=== PATIENT | male | born 1990 | race African-American/Black ===

== ENCOUNTER 2022-12-28 13:45 | Emergency (ER) | payer SELFPAY ==
--- OUTSIDE RECORDS SUMMARY | 2022-12-28 13:50 | XMS REPORT | Continuity of Care Document ---
:1990 Author Organization [facility] t Address [address] [facility] [address] [place] [address] Care Team Providers Name Role Phone UNKNOWN, REFFERING Primary Care Physician Unavailable ADIS MASCORRO Attending Clinician Unavailable ANNALEE RANDALL Attending Clinician Unavailable JEAN BOSTON M.D., Aroldo PENA Attending Clinician Unavailable JOSELYN HENRY M.D., JOSELYN Marrero M.D. Attending Clinician Unavailable ADIS MASCORRO Admitting Clinician Unavailable ANNALEE RANDALL Admitting Clinician Unavailable JEAN BOSTON M.D., JEAN Admitting Clinician Unavail able JOSELYN HENRY M.D., JOSELYN Marrero Admitting Clinician Unaseun lable Problems This patient has no known problems. Allergies, Adverse Reactions, Alerts This patient has no known allergies or adverse reactions. Social History Social Habit Start Date Stop Date Quantity Comments Source History of Current smoker MERCED العلي tobacco use [facility] r Tobacco use and 2017-10-27 2017-10-27 User of smokeless [facility] exposure [facility]:00:00 tobacco [facility] Alcohol intake 2017-10-27 2017-10-27 Current drinker [facility] (finding[facility] Sex Assigned At [birth year] [facility] kes [facility] Smoking Status Start Date Stop Date Source Ex-smoker 2017-10-27 00:00:00 2017-10-27 00:00:00 [facility] Medications This patient has no known medications. Procedures This patient has no known procedures. Encounters Start End Encounter Admission Attending Care Care Encounter Source Date/Time Date/Time Type Type Clinicians Facility Department ID 2017-10-22 2017-10-22 Emergency E ADIS MASCORRO [facility] MED [id number] 09:20:00 09:20:00 [facility] 2017-10-15 2017-10-15 [id number] 13:50:00 13:50:00 [facility] 2017-06-03 2017-06-07 [id number] [facility] 16:44:00 12:47[facility] 2017-04-05 Emergency E [facility] [id number] [address] 18:09:00 18:09:00 [facility] 2017-03-18 2017-03-18 [facility] [id number] [facility] 17:13:00 17:13:00 JEAN [facility] Results Test Description Test Time Test Comments Results Result Comments Source XR Forearm 2 Views 2017-12-22 Patient: JONNA, Left 18:12:48 DEONTRAY Date/Time12/22/2017 18:05 CDTReason for Examfoeriegn body in forearm;Other (please specify)ReportExam: XR Forearm 2 Views LeftLocation code: M50Ndrzgzy: Other (please specify);foreign body in forearmComparison: None availableFINDINGS:A P views of the left forearm were obtained before and after foreign body removal. There is linear radiopacity within the lateral soft tissues on AP imaging adjacent to the radius. There is removal of this foreign body. No remnant foreign body is visualized. There is no acute fracture or dislocation.IMPRESS ION:AP radiographs demonstrate in toto removal of radiopaque foreign body. Final Dictated by: MD Reyez Alan FDictated DT/TM: 12/22/2017 6:09 pmSigned by: MD Reyez Alan FSigned (Electronic Signature): 12/22/2017 6:12 pm XR Hand Complete 3+ 2017-11-17 Patient: BLACK, Views Right 15:24:46 DEONTRAY Date/Time11/17/2017 15:00 CDTReason for ExamForeign Body;Foreign bodyReportXR Hand Complete 3+ Views RightLOCATION: [id number]:Forei gn body;Foreign BodyCOMPARISON: None.DISCUSSION:Fro ntal, oblique, and lateral radiographs of the right hand were obtained.No radiopaque foreign body is seen.No acute fracture or dislocation is seen.No suspicious lytic or blastic osseous lesion is seen.The joint spaces are preserved.IMPRESSIO N:No acute osseous abnormalities. No radiopaque foreign body. Final Dictated by: MD Slade Alfred EDictated DT/TM: 11/17/2017 3:23 pmSigned by: MD Slade Alfred ESigndarnell (Electronic Signature): 11/17/2017 3:24 pm CBC with Differential 2017-10-22 10:35:00 Test Item Value Reference Range Interpretation Comme nts WBC (test code = WBC) 6.3 K/cumm 4.4-10.5 N RBC (test code = RBC) 4.10 M/cumm 4.10-5.70 N Hemoglobin (test code = HGB) 11.9 gm/dL 13.4-17.4 L Hematocrit (test code = HCT) 37.4 % 38.7-52.0 L MCV (test code = MCV) 91.1 fL 80-100 N MCH (test code = MCH) 29.0 pg 27.0-32.5 N MCHC (test code = MCHC) 31.8 g/dL 32.0-37.5 L RDW (test code = RDW) 13.5 % 11.5-14.5 N Platelet Count (test code = PLTCT) 370 K/cumm 140-440 N MPV (test code = MPV) 9.4 fL Diff Method (test code = DIFFM) Auto Neutrophil (test code = NEUT) 54.9 % 36-70 N Lymphocyte (test code = LYMPH) 35.8 % 12-44 N Monocyte (test code = MONO) 7.4 % 0-11 N Eosinophil (test code = EOS) 1.5 % 0-7 N Basophil (test code = BASO) 0.5 % 0-2 N Neutro Abs (test code = ANEUT) 3.4 K/cumm 1.6-7.4 N Lymph Abs (test code = ALYMPH) 2.3 K/cumm 0.5-4.6 N [place] Abs (test code = AMONO) 0.5 K/cumm 0.0-1.2 N Eos Abs (test code = AEOS) 0.09 K/cumm 0.00-0.74 N Baso Abs (test code = ABASO) 0.0 K/cumm 0.00-0.21 N Comprehensive Metabolic [id number] 10:23:00 Test Item Value Reference Range Interpretation Comments Sodium (test code = 140 mmol/L 135-145 N NA) Potassium (test 3.9 mmol/L 3.5-5.1 N code = K) Chloride (test code 102 mmol/L 98-105 N = CL) Carbon Dioxide 26 mmol/L 22-29 N (test code = CO2) Glucose (test code 135 mg/dL 70-115 H = GLU) Blood Urea Nitrogen 13 mg/dL 6-20 N (test code = BUN) Creatinine (test 1.1 mg/dL 0.7-1.2 N code = CREAT) Calcium (test code 8.6 mg/dL 8.3-10.5 N = CA) Prot Total (test 6.8 g/dL 6.4-8.3 N code = TP) Albumin (test code 4.0 g/dL 3.5-5.2 N = ALB) A/G Ratio (test 1.4 Ratio code = AGRATIO) Globulin (test code 2.8 2.9-3.1 L = GLOB) Bili Total (test 0.4 mg/dL 0.1-0.9 N code = TBIL) Alk Phos (test code 64 U/L 40-129 N = APHOS) AST (test code = 26 U/L 1-40 N AST) ALT (test code = 18 U/L 1-41 N ALT) BUN/Creatinine 11.8 Ratio (test code = BCRATIO) Anion Gap (test 12 mmol/L 7-16 N code = AGAP) Estimated GFR (test >60 eGFR (es timated code = GFR) mL/min/1.73m2 Glomerular Giorgio tration Rate) is an est imated value,calculate d from the patient's s isidra creatinine usin g the MDRD equation.I t is NOT the patient 's actual GFR. The eGFR provides a more clinicallyusefu l measure of kidn ey disease than se rum creatinine alone.This calculation kvng es sex and race into account, if the informationis provided. If th e race is not provided , and the patient isAfrican-Ameri can, multiply by 1.2 12. If sex is not prov ided, and thepatient is female, multipl y by 0.742. Results for patients <18 ye ars ofage have not been validated by th e MDRD study and shoul d be interpretedwith caution.eGFR Re sult Interpretation: eGFR > or = 60 is in t he Normal RangeeGF R < 60 may mean kidney diseaseeGFR < 1 5 may mean kidney failureRange s recommended by the National Kidney Foundation,http ://nkd ep.nih.gov [id number] 04:55:00 Test Item Value Reference Range Interpretation Comments Amphetamine (test POSITIVE Negative A For diagno stic code = AMPH) purposes only, positive result s should always b e assessedin conjunctionwith the patient's medic al history,clinica l examination and otherfindings.T o fulfill legal requirements, a more specific altern ate chemical method must be used inorder to obtain a Confirmed amarilis lytical result. GC/MS i s the preferred confi rmatory method. Barbiturates (test Negative Negative N code = MIRELA) Benzodiazepine (test Negative Negative N code = SHAHID) Cocaine (test code = POSITIVE Negative A COCA) Methadone (test code Negative Negative N = MTHD) Opiates (test code = Negative Negative N OPIA) PCP (test code = PCP) POSITIVE Negative A Propoxyphene (test Negative Negative N code = PROPOX) THC (test code = THC) POSITIVE Negative A Alcohol, Urine (test <0.01 g/dL 0.00-0.01 N code = ETOHU) Urinalysis [id number] 04:42:00 Test Item Value Reference Range Interpretation Comments Color (test code = COLOR) Yellow Yellow,Straw,Pl N yellow Clarity (test code = Clear Clear N CLAR) Specific [place] (test 1.017 1.001-1.035 N code = SPGR) pH (test code = PH) 6.5 5.0-9.0 N Ketone (test code = KET) Negative mg/dL Negative N Glucose (test code = Negative mg/dL Negative N GLUCUR) Protein (test code = Negative mg/dL Negative N PROT) Bilirubin (test code = Negative mg/dL Negative N BILI) Occult Blood (test code = Negative Negative N UDOB) Urobilinogen (test code = 0.2 mg/dL 0.2-1.0 N UROB) Nitrite (test code = NIT) Negative Negative N Leuk Esterase (test code Negative Negative N = LEUK) Micros Exam (test code = Not indicated MEXAM) Comprehensive Metabolic [id number] 14:57:00 Test Item Value Reference Range Interpretation Comments Sodium (test code = 139 mmol/L 135-145 N NA) Potassium (test 3.9 mmol/L 3.5-5.1 N code = K) Chloride (test code 101 mmol/L 98-105 N = CL) Carbon Dioxide 27 mmol/L 22-29 N (test code = CO2) Glucose (test code 113 mg/dL 70-115 N = GLU) Blood Urea Nitrogen 12 mg/dL 6-20 N (test code = BUN) Creatinine (test 0.8 mg/dL 0.7-1.2 N code = CREAT) Calcium (test code 8.7 mg/dL 8.3-10.5 N = CA) Prot Total (test 6.7 g/dL 6.4-8.3 N code = TP) Albumin (test code 3.8 g/dL 3.5-5.2 N = ALB) A/G Ratio (test 1.3 Ratio code = AGRATIO) Globulin (test code 2.9 2.9-3.1 N = GLOB) Bili Total (test 0.3 mg/dL 0.1-0.9 N code = TBIL) Alk Phos (test code 76 U/L 40-129 N = APHOS) AST (test code = 28 U/L 1-40 N AST) ALT (test code = 21 U/L 1-41 N ALT) BUN/Creatinine 15.0 Ratio (test code = BCRATIO) Anion Gap (test 11 mmol/L 7-16 N code = AGAP) Estimated GFR (test >60 eGFR (es timated code = GFR) mL/min/1.73m2 Glomerular Giorgio tration Rate) is an est imated value,calculate d from the patient's s isidra creatinine usin g the MDRD equation.I t is NOT the patient 's actual GFR. The eGFR provides a more clinicallyusefu l measure of kidn ey disease than se rum creatinine alone.This calculation kvng es sex and race into account, if the informationis provided. If th e race is not provided , and the patient isAfrican-Ameri can, multiply by 1.2 12. If sex is not prov ided, and thepatient is female, multipl y by 0.742. Results for patients <18 ye ars ofage have not been validated by e MDRD study and shoul d be interpretedwith caution.eGFR Re sult Interpretation: eGFR > or = 60 is in t he Normal RangeeGF R < 60 may mean kidney diseaseeGFR < 1 5 may mean kidney failureRange s recommended by the National Kidney Foundation,http ://nkd ep.nih.gov CBC with [id number] 14:41:00 Test Item Value Reference Range Interpretation Comments WBC (test code = WBC) 6.7 K/cumm 4.4-10.5 N RBC (test code = RBC) 4.16 M/cumm 4.10-5.70 N Hemoglobin (test code = HGB) 12.3 gm/dL 13.4-17.4 L Hematocrit (test code = HCT) 37.0 % 38.7-52.0 L MCV (test code = MCV) 88.9 fL 80-100 N MCH (test code = MCH) 29.5 pg 27.0-32.5 N MCHC (test code = MCHC) 33.2 g/dL 32.0-37.5 N RDW (test code = RDW) 13.0 % 11.5-14.5 N Platelet Count (test code = 386 K/cumm 140-440 N PLTCT) MPV (test code = MPV) 9.7 fL Diff Method (test code = DIFFM) Auto Neutrophil (test code = NEUT) 47.6 % 36-70 N Lymphocyte (test code = LYMPH) 42.5 % 12-44 N Monocyte (test code = MONO) 6.7 % 0-11 N Eosinophil (test code = EOS) 2.7 % 0-7 N Basophil (test code = BASO) 0.5 % 0-2 N Neutro Abs (test code = ANEUT) 3.2 K/cumm 1.6-7.4 N Lymph Abs (test code = ALYMPH) 2.8 K/cumm 0.5-4.6 N [place] Abs (test code = AMONO) 0.4 K/cumm 0.0-1.2 N Eos Abs (test code = AEOS) 0.18 K/cumm 0.00-0.74 N Baso Abs (test code = ABASO) 0.0 K/cumm 0.00-0.21 N RPR, [id number] 10:41:00 Test Item Value Reference Range Interpretation Comments RPR (test code = RPR) Non-Reactive Non-Reactive N Thyroid Stimulating Hormone (TSH)2017-10-07 08:03:00 Test Item Value Reference Range Interpretation Comments TSH (test code = TSH) 1.70 mIU/mL 0.270-4.200 N Lipid [id number] 07:56:00 Test Item Value Reference Range Interpretation Comments Cholesterol (test 151 mg/dL 0-200 N code = CHOL) Triglycerides (test 54 mg/dL 9-200 N code = TRIG) HDL (test code = 78 mg/dL 40-60 H HDL) Chol/HDL (test code 1.9 Ratio 0.0-5.0 N = CHOLPHDL) LDL, Calculated 62 0-130 N (NOTE)RISK O F HEART (test code = LDLC) DISEASEPu blished by Iranian Heart AssociationAnal yte Optimal Boderli ne Increased RiskC HOL <200 200-239 >240TRI G <150 150-199 >200HDL Male: >60 <40HDL Fema le: >60 <50LDL < 100 130-159 >160LDL NEAR OPTIMAL IS 100- 129 VLDL (test code = 11 mg/dL 5-40 N VLDL) LDL/HDL (test code = 1 LDLPHDL) [id number] 14:40:00 Test Item Value Reference Range Interpretation Comments Amphetamine (test code Negative Negative N For d iagnostic purposes = AMPH) only, positive results should always b e assessedin conjunctionwith the patient's medic al history,clinica l examination and otherfindings.T o fulfill legal requirements, a more specific altern ate chemical method must be used inorder to obtain a Confirmed amarilis lytical result. GC/MS i s the preferred confi rmatory method. Barbiturates (test Negative Negative N code = MIRELA) Benzodiazepine (test Negative Negative N code = SHAHID) Cocaine (test code = POSITIVE Negative A COCA) Methadone (test code = Negative Negative N MTHD) Opiates (test code = Negative Negative N OPIA) PCP (test code = PCP) Negative Negative N Propoxyphene (test Negative Negative N code = PROPOX) THC (test code = THC) POSITIVE Negative A Urinalysis [id number] 12:56:00 Test Item Value Reference Range Interpretation Comments Color (test code = COLOR) Yellow Yellow,Straw,Pl N yellow Clarity (test code = Clear Clear N CLAR) Specific [place]ert[place] (test 1.020 1.001-1.035 N code = SPGR) pH (test code = PH) 7.0 5.0-9.0 N Ketone (test code = KET) Negative mg/dL Negative N Glucose (test code = Negative mg/dL Negative N GLUCUR) Protein (test code = Negative mg/dL Negative N PROT) Bilirubin (test code = Negative mg/dL Negative N BILI) Occult Blood (test code = Negative Negative N UDOB) Urobilinogen (test code = 1.0 mg/dL 0.2-1.0 N UROB) Nitrite (test code = NIT) Negative Negative N Leuk Esterase (test code Negative Negative N = LEUK) Micros Exam (test code = Not indicated MEXAM) Comprehensive Metabolic [id number] 08:13:00 Test Item Value Reference Range Interpretation Comments Sodium (test code = 138 mmol/L 135-145 N NA) Potassium (test 4.1 mmol/L 3.5-5.1 N code = K) Chloride (test code 100 mmol/L 98-105 N = CL) Carbon Dioxide 27 mmol/L 22-29 N (test code = CO2) Glucose (test code 79 mg/dL 70-115 N = GLU) Blood Urea Nitrogen 10 mg/dL 6-20 N (test code = BUN) Creatinine (test 0.9 mg/dL 0.7-1.2 N code = CREAT) Calcium (test code 9.3 mg/dL 8.3-10.5 N = CA) Prot Total (test 7.9 g/dL 6.4-8.3 N code = TP) Albumin (test code 4.3 g/dL 3.5-5.2 N = ALB) A/G Ratio (test 1.2 Ratio code = AGRATIO) Globulin (test code 3.6 2.9-3.1 H = GLOB) Bili Total (test 0.5 mg/dL 0.1-0.9 N code = TBIL) Alk Phos (test code 61 U/L 40-129 N = APHOS) AST (test code = 26 U/L 1-40 N AST) ALT (test code = 18 U/L 1-41 N ALT) BUN/Creatinine 11.1 Ratio (test code = BCRATIO) Anion Gap (test 11 mmol/L 7-16 N code = AGAP) Estimated GFR (test >60 eGFR (es timated code = GFR) mL/min/1.73m2 Glomerular Giorgio tration Rate) is an est imated value,calculate d from the patient's s isidra creatinine usin g the MDRD equation.I t is NOT the patient 's actual GFR. The eGFR provides a more clinicallyusefu l measure of kidn ey disease than se rum creatinine alone.This calculation kvng es sex and race into account, if the informationis provided. If th e race is not provided , and the patient isAfrican-Ameri can, multiply by 1.2 12. If sex is not prov ided, and thepatient is female, multipl y by 0.742. Results for patients <18 ye ars ofage have not been validated by th e MDRD study and shoul d be interpretedwith caution.eGFR Re sult Interpretation: eGFR > or = 60 is in t he Normal RangeeGF R < 60 may mean kidney diseaseeGFR < 1 5 may mean kidney failureRange s recommended by the National Kidney Foundation,http ://nkd ep.nih.gov CBC with [id number] 07:59:00 Test Item Value Reference Range Interpretation Comments WBC (test code = WBC) 5.1 K/cumm 4.4-10.5 N RBC (test code = RBC) 4.38 M/cumm 4.10-5.70 N Hemoglobin (test code = HGB) 13.1 gm/dL 13.4-17.4 L Hematocrit (test code = HCT) 39.2 % 38.7-52.0 N MCV (test code = MCV) 89.5 fL 80-100 N MCH (test code = MCH) 29.8 pg 27.0-32.5 N MCHC (test code = MCHC) 33.3 g/dL 32.0-37.5 N RDW (test code = RDW) 13.0 % 11.5-14.5 N Platelet Count (test code = 356 K/cumm 140-440 N PLTCT) MPV (test code = MPV) 6.8 fL Diff Method (test code = DIFFM) Auto Neutrophil (test code = NEUT) 56.4 % 36-70 N Lymphocyte (test code = LYMPH) 30.6 % 12-44 N Monocyte (test code = MONO) 8.8 % 0-11 N Eosinophil (test code = EOS) 3.6 % 0-7 N Basophil (test code = BASO) 0.6 % 0-2 N Neutro Abs (test code = ANEUT) 2.9 K/cumm 1.6-7.4 N Lymph Abs (test code = ALYMPH) 1.6 K/cumm 0.5-4.6 N [place] Abs (test code = AMONO) 0.5 K/cumm 0.0-1.2 N Eos Abs (test code = AEOS) 0.19 K/cumm 0.00-0.74 N Baso Abs (test code = ABASO) 0.0 K/cumm 0.00-0.21 N RPR, [id number] 11:46:00 Test Item Value Reference Range Interpretation Comments RPR (test code = RPR) Non-Reactive Non-Reactive N Thyroid Stimulating Hormone (TSH)2017-06-18 08:48:00 Test Item Value Reference Range Interpretation Comments TSH (test code = TSH) 0.86 mIU/mL 0.270-4.200 N Lipid [id number] 08:40:00 Test Item Value Reference Range Interpretation Comments Cholesterol (test 157 mg/dL 0-200 N code = CHOL) Triglycerides (test 120 mg/dL 9-200 N code = TRIG) HDL (test code = 86 mg/dL 40-60 H HDL) Chol/HDL (test code 1.8 Ratio 0.0-5.0 N = CHOLPHDL) LDL, Calculated 47 0-130 N (NOTE)RISK O F HEART (test code = LDLC) DISEASEPu blished by Iranian Heart AssociationAnal yte Optimal Boderli ne Increased RiskC HOL <200 200-239 >240TRI G <150 150-199 >200HDL Male: >60 <40HDL Fema le: >60 <50LDL <100 130 -159 >160LDL NEAR OP TIMAL IS 100-129 VLDL (test code = 24 mg/dL 5-40 N VLDL) LDL/HDL (test code = 1 LDLPHDL) Alcohol/Ethanol, [id number] 16:31:00 Test Item Value Reference Range Interpretation Comments Alcohol, Ethyl <0.01 g/dL 0.00-0.01 N Intoxicated 0 .080 g/dL (test code = ETOH) or more Comprehensive Metabolic [id number] 16:31:00 Test Item Value Reference Range Interpretation Comments Sodium (test code = 138 mmol/L 135-145 N NA) Potassium (test 3.8 mmol/L 3.5-5.1 N code = K) Chloride (test code 102 mmol/L 98-105 N = CL) Carbon Dioxide 29 mmol/L 22-29 N (test code = CO2) Glucose (test code 107 mg/dL 70-115 N = GLU) Blood Urea Nitrogen 12 mg/dL 6-20 N (test code = BUN) Creatinine (test 0.9 mg/dL 0.7-1.2 N code = CREAT) Calcium (test code 9.2 mg/dL 8.3-10.5 N = CA) Prot Total (test 7.2 g/dL 6.4-8.3 N code = TP) Albumin (test code 4.1 g/dL 3.5-5.2 N = ALB) A/G Ratio (test 1.3 Ratio code = AGRATIO) Globulin (test code 3.1 2.9-3.1 N = GLOB) Bili Total (test 0.8 mg/dL 0.1-0.9 N code = TBIL) Alk Phos (test code 64 U/L 40-129 N = APHOS) AST (test code = 42 U/L 1-40 H AST) ALT (test code = 30 U/L 1-41 N ALT) BUN/Creatinine 13.3 Ratio (test code = BCRATIO) Anion Gap (test 7 mmol/L 7-16 N code = AGAP) Estimated GFR (test >60 eGFR (es timated code = GFR) mL/min/1.73m2 Glomerular Giorgio tration Rate) is an est imated value,calculate d from the patient's s isidra creatinine usin g the MDRD equation.I t is NOT the patient 's actual GFR. The eGFR provides a more clinicallyusefu l measure of kidn ey disease than se rum creatinine alone.This calculation kvng es sex and race into account, if the informationis provided. If th e race is not provided , and the patient isAfrican-Ameri can, multiply by 1.2 12. If sex is not prov ided, and thepatient is female, multipl y by 0.742. Results for patients <18 ye ars ofage have not been validated by th e MDRD study and shoul d be interpretedwith caution.eGFR Re sult Interpretation: eGFR > or = 60 is in t he Normal RangeeGF R < 60 may mean kidney diseaseeGFR < 1 5 may mean kidney failureRange s recommended by the National Kidney Foundation,http ://nkd ep.nih.gov CBC with [id number] 16:14:00 Test Item Value Reference Range Interpretation Comments WBC (test code = WBC) 5.0 K/cumm 4.4-10.5 N RBC (test code = RBC) 4.17 M/cumm 4.10-5.70 N Hemoglobin (test code = HGB) 13.7 gm/dL 13.4-17.4 N Hematocrit (test code = HCT) 37.2 % 38.7-52.0 L MCV (test code = MCV) 89.1 fL 80-100 N MCH (test code = MCH) 32.9 pg 27.0-32.5 H MCHC (test code = MCHC) 36.9 g/dL 32.0-37.5 N RDW (test code = RDW) 12.7 % 11.5-14.5 N Platelet Count (test code = 232 K/cumm 140-440 N PLTCT) MPV (test code = MPV) 9.1 fL Diff Method (test code = DIFFM) Auto Neutrophil (test code = NEUT) 59.7 % 36-70 N Lymphocyte (test code = LYMPH) 28.5 % 12-44 N Monocyte (test code = MONO) 10.2 % 0-11 N Eosinophil (test code = EOS) 1.4 % 0-7 N Basophil (test code = BASO) 0.2 % 0-2 N Neutro Abs (test code = ANEUT) 3.0 K/cumm 1.6-7.4 N Lymph Abs (test code = ALYMPH) 1.4 K/cumm 0.5-4.6 N [place] Abs (test code = AMONO) 0.5 K/cumm 0.0-1.2 N Eos Abs (test code = AEOS) 0.07 K/cumm 0.00-0.74 N Baso Abs (test code = ABASO) 0.0 K/cumm 0.00-0.21 N Comprehensive Metabolic [id number] 01:59:00 Test Item Value Reference Range Interpretation Comments Sodium (test code = 140 mmol/L 135-145 N NA) Potassium (test 3.7 mmol/L 3.5-5.1 N code = K) Chloride (test code 100 mmol/L 98-105 N = CL) Carbon Dioxide 29 mmol/L 22-29 N (test code = CO2) Glucose (test code 63 mg/dL 70-115 L = GLU) Blood Urea Nitrogen 13 mg/dL 6-20 N (test code = BUN) Creatinine (test 1.0 mg/dL 0.7-1.2 N code = CREAT) Calcium (test code 9.6 mg/dL 8.3-10.5 N = CA) Prot Total (test 7.3 g/dL 6.4-8.3 N code = TP) Albumin (test code 4.3 g/dL 3.5-5.2 N = ALB) A/G Ratio (test 1.4 Ratio code = AGRATIO) Globulin (test code 3.0 2.9-3.1 N = GLOB) Bili Total (test 0.4 mg/dL 0.1-0.9 N code = TBIL) Alk Phos (test code 76 U/L 40-129 N = APHOS) AST (test code = 19 U/L 1-40 N AST) ALT (test code = 13 U/L 1-41 N ALT) BUN/Creatinine 13.0 Ratio (test code = BCRATIO) Anion Gap (test 11 mmol/L 7-16 N code = AGAP) Estimated GFR (test >60 eGFR (es timated code = GFR) mL/min/1.73m2 Glomerular Giorgio tration Rate) is an est imated value,calculate d from the patient's s isidra creatinine usin g the MDRD equation.I t is NOT the patient 's actual GFR. The eGFR provides a more clinicallyusefu l measure of kidn ey disease than se rum creatinine alone.This calculation kvng es sex and race into account, if the informationis provided. If th e race is not provided , and the patient isAfrican-Ameri can, multiply by 1.2 12. If sex is not prov ided, and thepatient is female, multipl y by 0.742. Results for patients <18 ye ars ofage have not been validated by th e MDRD study and shoul d be interpretedwith caution.eGFR Re sult Interpretation: eGFR > or = 60 is in t he Normal RangeeGF R < 60 may mean kidney diseaseeGFR < 1 5 may mean kidney failureRange s recommended by the National Kidney Foundation,http ://nkd ep.nih.gov Alcohol/Ethanol, [id number] 01:59:00 Test Item Value Reference Range Interpretation Comments Alcohol, Ethyl <0.01 g/dL 0.00-0.01 N Intoxicated 0 .080 g/dL (test code = ETOH) or more [id number] 01:56:00 Test Item Value Reference Range Interpretation Comments Amphetamine (test Negative Negative N For diagno stic code = AMPH) purposes only, positive result s should always b e assessedin conjunctionwith the patient's medic al history,clinica l examination and otherfindings.T o fulfill legal requirements, a more specific altern ate chemical method must be used inorder to obtain a Confirmed amarilis lytical result. GC/MS i s the preferred confi rmatory method. Barbiturates (test Negative Negative N code = MIRELA) Benzodiazepine (test Negative Negative N code = SHAHID) Cocaine (test code = POSITIVE Negative A COCA) Methadone (test code Negative Negative N = MTHD) Opiates (test code = Negative Negative N OPIA) PCP (test code = PCP) Negative Negative N Propoxyphene (test Negative Negative N code = PROPOX) THC (test code = THC) Negative Negative N Alcohol, Urine (test <0.01 g/dL 0.00-0.01 N code = ETOHU) CBC with [id number] 01:55:00 Test Item Value Reference Range Interpretation Comments WBC (test code = WBC) 6.2 K/cumm 4.4-10.5 N RBC (test code = RBC) 4.55 M/cumm 4.10-5.70 N Hemoglobin (test code = HGB) 14.4 gm/dL 13.4-17.4 N Hematocrit (test code = HCT) 40.7 % 38.7-52.0 N MCV (test code = MCV) 89.4 fL 80-100 N MCH (test code = MCH) 31.7 pg 27.0-32.5 N MCHC (test code = MCHC) 35.4 g/dL 32.0-37.5 N RDW (test code = RDW) 12.3 % 11.5-14.5 N Platelet Count (test code = 257 K/cumm 140-440 N PLTCT) MPV (test code = MPV) 9.6 fL Diff Method (test code = DIFFM) Auto Neutrophil (test code = NEUT) 44.2 % 36-70 N Lymphocyte (test code = LYMPH) 44.2 % 12-44 H Monocyte (test code = MONO) 8.1 % 0-11 N Eosinophil (test code = EOS) 2.8 % 0-7 N Basophil (test code = BASO) 0.7 % 0-2 N Neutro Abs (test code = ANEUT) 2.8 K/cumm 1.6-7.4 N Lymph Abs (test code = ALYMPH) 2.8 K/cumm 0.5-4.6 N [place] Abs (test code = AMONO) 0.5 K/cumm 0.0-1.2 N Eos Abs (test code = AEOS) 0.18 K/cumm 0.00-0.74 N Baso Abs (test code = ABASO) 0.0 K/cumm 0.00-0.21 N RPR, [id number] 05:53:00 Test Item Value Reference Range Interpretation Comments RPR (test code = RPR) Non-Reactive Non-Reactive N Thyroid Stimulating Hormone (3rd Gen)2017-05-06 00:09:00 Test Item Value Reference Range Interpretation Comments TSH (test code = TSH) 2.26 mIU/mL 0.270-4.200 N Lipid [id number] 00:09:00 Test Item Value Reference Range Interpretation Comments Cholesterol (test 197 mg/dL 0-200 N code = CHOL) Triglycerides (test 146 mg/dL 9-200 N code = TRIG) HDL (test code = 83 mg/dL 40-60 H HDL) Chol/HDL (test code 2.4 Ratio 0.0-5.0 N = CHOLPHDL) LDL, Calculated 85 0-130 N (NOTE)RISK O F HEART (test code = LDLC) DISEASEPu blished by Iranian Heart AssociationAnal yte Optimal Boderli ne Increased RiskC HOL <200 200-239 >240TRI G <150 150-199 >200HDL Male: >60 <40HDL Fema le: >60 <50LDL <100 130 -159 >160LDL NEAR OP [facility] IS 100-129 VLDL (test code = 29 mg/dL 5-40 N VLDL) LDL/HDL (test code = 1 LDLPHDL) Comprehensive Metabolic [id number] 21:34:00 Test Item Value Reference Range Interpretation Comments Sodium (test code = 139 mmol/L 135-145 N NA) Potassium (test 3.7 mmol/L 3.5-5.1 N code = K) Chloride (test code 99 mmol/L 98-105 N = CL) Carbon Dioxide 30 mmol/L 22-29 H (test code = CO2) Glucose (test code 93 mg/dL 70-115 N = GLU) Blood Urea Nitrogen 13 mg/dL 6-20 N (test code = BUN) Creatinine (test 1.0 mg/dL 0.7-1.2 N code = CREAT) Calcium (test code 9.4 mg/dL 8.3-10.5 N = CA) Prot Total (test 7.3 g/dL 6.4-8.3 N code = TP) Albumin (test code 4.5 g/dL 3.5-5.2 N = ALB) A/G Ratio (test 1.6 Ratio code = AGRATIO) Globulin (test code 2.8 2.9-3.1 L = GLOB) Bili Total (test 0.2 mg/dL 0.1-0.9 N code = TBIL) Alk Phos (test code 64 U/L 40-129 N = APHOS) AST (test code = 18 U/L 1-40 N AST) ALT (test code = 13 U/L 1-41 N ALT) BUN/Creatinine 13.0 Ratio (test code = BCRATIO) Anion Gap (test 10 mmol/L 7-16 N code = AGAP) Estimated GFR (test >60 eGFR (es timated code = GFR) mL/min/1.73m2 Glomerular Giorgio tration Rate) is an est imated value,calculate d from the patient's s isidra creatinine usin g the MDRD equation.I t is NOT the patient 's actual GFR. The eGFR provides a more clinicallyusefu l measure of kidn ey disease than se rum creatinine alone.This calculation kvng es sex and race into account, if the informationis provided. If th e race is not provided , and the patient isAfrican-Ameri can, multiply by 1.2 12. If sex is not prov ided, and thepatient is female, multipl y by 0.742. Results for patients <18 ye ars ofage have not been validated by th e MDRD study and shoul d be interpretedwith caution.eGFR Re sult Interpretation: eGFR > or = 60 is in t he Normal RangeeGF R < 60 may mean kidney diseaseeGFR < 1 5 may mean kidney failureRange s recommended by the National Kidney Foundation,http ://nkd ep.nih.gov [id number] 21:17:00 Test Item Value Reference Range Interpretation Comments Amphetamine (test Negative Negative N For diagno stic code = AMPH) purposes only, positive result s should always b e assessedin conjunctionwith the patient's medic al history,clinica l examination and otherfindings.T o fulfill legal requirements, a more specific altern ate chemical method must be used inorder to obtain a Confirmed amarilis lytical result. GC/MS i s the preferred confi rmatory method. Barbiturates (test Negative Negative N code = MIRELA) Benzodiazepine (test Negative Negative N code = SHAHID) Cocaine (test code = Negative Negative N COCA) Methadone (test code Negative Negative N = MTHD) Opiates (test code = Negative Negative N OPIA) PCP (test code = PCP) Negative Negative N Propoxyphene (test Negative Negative N code = PROPOX) THC (test code = THC) Negative Negative N Alcohol, Urine (test <0.01 g/dL 0.00-0.01 N code = ETOHU) CBC with [id number] 21:15:00 Test Item Value Reference Range Interpretation Comments WBC (test code = WBC) 5.5 K/cumm 4.4-10.5 N RBC (test code = RBC) 4.75 M/cumm 4.10-5.70 N Hemoglobin (test code = HGB) 15.0 gm/dL 13.4-17.4 N Hematocrit (test code = HCT) 45.3 % 38.7-52.0 N MCV (test code = MCV) 95.4 fL 80-100 N MCH (test code = MCH) 31.5 pg 27.0-32.5 N MCHC (test code = MCHC) 33.0 g/dL 32.0-37.5 N RDW (test code = RDW) 12.4 % 11.5-14.5 N Platelet Count (test code = 321 K/cumm 140-440 N PLTCT) MPV (test code = MPV) 7.3 fL Diff Method (test code = DIFFM) Auto Neutrophil (test code = NEUT) 47.6 % 36-70 N Lymphocyte (test code = LYMPH) 39.6 % 12-44 N Monocyte (test code = MONO) 10.4 % 0-11 N Eosinophil (test code = EOS) 1.9 % 0-7 N Basophil (test code = BASO) 0.5 % 0-2 N Neutro Abs (test code = ANEUT) 2.6 K/cumm 1.6-7.4 N Lymph Abs (test code = ALYMPH) 2.2 K/cumm 0.5-4.6 N [place] Abs (test code = AMONO) 0.6 K/cumm 0.0-1.2 N Eos Abs (test code = AEOS) 0.10 K/cumm 0.00-0.74 N Baso Abs (test code = ABASO) 0.0 K/cumm 0.00-0.21 N Valproic Acid (Depakote),[id number] 09:44:00 Test Item Value Reference Range Interpretation Comments Valproic Acid (test code = VALP) 67.3 ug/mL 50.0-100.0 N Valproic Acid (Depakote),[id number] 21:18:00 Test Item Value Reference Range Interpretation Comments Valproic Acid (test code = VALP) 46.7 ug/mL 50.0-100.0 L RPR, [id number] 12:29:00 Test Item Value Reference Range Interpretation Comments RPR (test code = RPR) Non-Reactive Non-Reactive N Thyroid Stimulating Hormone (TSH)2017-03-19 09:08:00 Test Item Value Reference Range Interpretation Comments TSH (test code = TSH) 3.69 mIU/mL 0.270-4.200 N Lipid [id number] 09:02:00 Test Item Value Reference Range Interpretation Comments Cholesterol (test 166 mg/dL 0-200 N code = CHOL) Triglycerides (test 37 mg/dL 9-200 N code = TRIG) HDL (test code = 92 mg/dL 40-60 H HDL) Chol/HDL (test code 1.8 Ratio 0.0-5.0 N = CHOLPHDL) LDL, Calculated 67 0-130 N (NOTE)RISK O F HEART (test code = LDLC) DISEASEPu blished by Iranian Heart AssociationAnal yte Optimal Boderli ne Increased RiskC HOL <200 200-239 >240TRI G <150 150-199 >200HDL Male: >60 <40HDL Fem roista: >60 <50LDL < 100 130-159 >160LDL NEAR OPTIMAL IS 100- 129 VLDL (test code = 7 mg/dL 5-40 N VLDL) LDL/HDL (test code = 1 LDLPHDL) CBC with [id number] 13:48:00 Test Item Value Reference Range Interpretation Comments WBC (test code = WBC) 3.0 K/cumm 4.4-10.5 L WBC Corrected (test code 2.5 K/cumm 4.4-10.5 L = CWBC) RBC (test code = RBC) 3.88 M/cumm 4.10-5.70 L Hemoglobin (test code = 12.1 gm/dL 13.4-17.4 L HGB) Hematocrit (test code = 35.1 % 38.7-52.0 L HCT) MCV (test code = MCV) 90.5 fL 80-100 N MCH (test code = MCH) 31.3 pg 27.0-32.5 N MCHC (test code = MCHC) 34.6 g/dL 32.0-37.5 N RDW (test code = RDW) 12.6 % 11.5-14.5 N Platelet Count (test 192 K/cumm 140-440 N code = PLTCT) MPV (test code = MPV) 8.0 fL Diff Method (test code = Manual DIFFM) Neutrophil (test code = 48.0 % 36-70 N NEUT) Bands (test code = BAND) 2.0 % 0-6 N Lymphocyte (test code = 40.0 % 12-44 N LYMPH) Monocyte (test code = 5.0 % 0-11 N MONO) Eosinophil (test code = 4.0 % 0-7 N EOS) Basophil (test code = 1.0 % 0-2 N BASO) nRBC (test code = NRBC) 20 /100 WBC 0-0 H Neutro Abs (test code = 1.3 K/cumm 1.6-7.4 L ANEUT) Lymph Abs (test code = 1.0 K/cumm 0.5-4.6 N ALYMPH) [place] Abs (test code = 0.1 K/cumm 0.0-1.2 N AMONO) Eos Abs (test code = 0.10 K/cumm 0.00-0.74 N AEOS) Baso Abs (test code = 0.0 K/cumm 0.00-0.21 N ABASO) RBC Morphology (test Normal code = RBCMRPH) Platelet Est (test code Normal Platelet on = PLTEST) Smear [id number] 13:36:00 Test Item Value Reference Range Interpretation Comments Amphetamine (test code Negative Negative N For d iagnostic purposes = AMPH) only, positive results should always b e assessedin conjunctionwith the patient's medic al history,clinica l examination and otherfindings.T o fulfill legal requirements, a more specific altern ate chemical method must be used inorder to obtain a Confirmed amarilis lytical result. GC/MS i s the preferred confi rmatory method. Barbiturates (test Negative Negative N code = MIRELA) Benzodiazepine (test Negative Negative N code = SHAHID) Cocaine (test code = Negative Negative N COCA) Methadone (test code = Negative Negative N MTHD) Opiates (test code = Negative Negative N OPIA) PCP (test code = PCP) Negative Negative N Propoxyphene (test Negative Negative N code = PROPOX) THC (test code = THC) Negative Negative N Comprehensive Metabolic [id number] 13:00:00 Test Item Value Reference Range Interpretation Comments Sodium (test code = 139 mmol/L 135-145 N NA) Potassium (test 3.8 mmol/L 3.5-5.1 N code = K) Chloride (test code 101 mmol/L 98-105 N = CL) Carbon Dioxide 30 mmol/L 22-29 H (test code = CO2) Glucose (test code 76 mg/dL 70-115 N = GLU) Blood Urea Nitrogen 10 mg/dL 6-20 N (test code = BUN) Creatinine (test 1.0 mg/dL 0.7-1.2 N code = CREAT) Calcium (test code 8.9 mg/dL 8.3-10.5 N = CA) Prot Total (test 7.2 g/dL 6.4-8.3 N code = TP) Albumin (test code 4.3 g/dL 3.5-5.2 N = ALB) A/G Ratio (test 1.5 Ratio code = AGRATIO) Globulin (test code 2.9 2.9-3.1 N = GLOB) Bili Total (test 0.3 mg/dL 0.1-0.9 N code = TBIL) Alk Phos (test code 55 U/L 40-129 N = APHOS) AST (test code = 28 U/L 1-40 N AST) ALT (test code = 59 U/L 1-41 H ALT) BUN/Creatinine 10.0 Ratio (test code = BCRATIO) Anion Gap (test 8 mmol/L 7-16 N code = AGAP) Estimated GFR (test >60 eGFR (es timated code = GFR) mL/min/1.73m2 Glomerular Giorgio tration Rate) is an est imated value,calculate d from the patient's s isirda creatinine usin g the MDRD equation.I t is NOT the patient 's actual GFR. The eGFR provides a more clinicallyusefu l measure of kidn ey disease than se rum creatinine alone.This calculation kvng es sex and race into account, if the informationis provided. If th e race is not provided , and the patient isAfrican-Ameri can, multiply by 1.2 12. If sex is not prov ided, and thepatient is female, multipl y by 0.742. Results for patients <18 ye ars ofage have not been validated by th e MDRD study and shoul d be interpretedwith caution.eGFR Re sult Interpretation: eGFR > or = 60 is in t he Normal RangeeGF R < 60 may mean kidney diseaseeGFR < 1 5 may mean kidney failureRange s recommended by the National Kidney Foundation,http ://nkd ep.nih.gov Urinalysis [id number] 12:44:00 Test Item Value Reference Range Interpretation Comments Color (test code = COLOR) Yellow Yellow,Straw,Pl N yellow Clarity (test code = Clear Clear N CLAR) Specific Hubert[place] (test 1.010 1.001-1.035 N code = SPGR) pH (test code = PH) 7.0 5.0-9.0 N Ketone (test code = KET) Negative mg/dL Negative N Glucose (test code = Negative mg/dL Negative N GLUCUR) Protein (test code = Negative mg/dL Negative N PROT) Bilirubin (test code = Negative mg/dL Negative N BILI) Occult Blood (test code = Negative Negative N UDOB) Urobilinogen (test code = 0.2 mg/dL 0.2-1.0 N UROB) Nitrite (test code = NIT) Negative Negative N Leuk Esterase (test code Negative Negative N = LEUK) Micros Exam (test code = Not indicated MEXAM) Notes Date/Time Note Provider Source 2017-10-19 08:54:39-00:00 [facility] Discharge Summary PATIENT NAME: RADHA ASH PHYSICIAN: Kalyan mijares MD Admitted: MR NUMBER: [id number] DISCHARGED: 10/08/2017 01: 11:00 DATE OF ADMISSION: 10/06/2017 The patient was admitted 10/06/2017 and discharg ed against medical advice on 10/08/2017. ATTENDING PHYSICIAN: Jean Boston MD REASON FOR ADMISSION: Radha Ash is a 27-year-old black male with a past psychiatric history of schizoaffective disorder, bipolar type, antisoci al personality disorder, Cocaine use, who presents to the [facility] c omplaining of a "psych problem" with command auditory hallucinations te lling him to hurt himself and others in the context of cocaine and marijuana u se. PRIMARY DIAGNOSIS Drug-induced psychosis. SECONDARY DIAGNOSES: 1. Drug induced mood disorder. 2. Stimulant use disorder, severe. 3. Schizoaffective disorder, bipolar type. PRINCIPAL PROCEDURES: Psychopharmacotherapy. SPECIAL PROCEDURES: None. HOSPITAL COURSE: Mr. Radha Ash is a 27-year-old black male t hat was admitted to Dr. Boston's team from 10/06/2017 to 10/08/2017. The patient was on unit restrictions along with elopement and standard P ICU precautions. The patient was ordered his discharge medications from prev, which included Haldol, decanoate, and Prozac; however, he decli deepika these medications. He has also been here many times in the past and hi s course is similar. He refused to talk or cooperative. On the first day and refused all medications. On the second day, he was lucid ple asant with no SI, HI, or AVH. He was able to clearly tell me that his iss ues other drugs that he is chronically taking. He understands what will hap pen if he does not get help and refuses rehabilitation. He understands that continuing of illicit drug use could lead to possible , but inform me that he will stay away from them at this time, he wishes to leave against me dical advice. Again on the day of discharge, he denied any SI, HI, AVH, and felt that he was okay. He had been sleeping well. His plan includes callin g his family upon discharge from [facility] to pick him up. He states he kno ws the [facility] number to set up an appointment if he needs it. MENTAL STATUS EXAMINATION: General: Well groomed, well-nourished, black mal e with good eye contact, calm attitude, no psychomotor retardation or act ivation. No abnormal [facility] Discharge Summary PATIENT NAME: RADHA ASH PHYSICIAN: Kalyan mijares MD Admitted: MR NUMBER: [id number] DISCHARGED: 10/08/2017 01: 11:00 DATE OF ADMISSION: 10/06/2017 The patient was admitted 10/06/2017 and discharg ed against medical advice on 10/08/2017. ATTENDING PHYSICIAN: Jean Boston MD REASON FOR ADMISSION: Radha Ash is a 27-year-old black male with a past psychiatric history of schizoaffective disorder, bipolar type, antisoci al personality disorder, Cocaine use, who presents to the [facility] ED c omplaining of a "psych problem" with command auditory hallucinations te lling him to hurt himself and others in the context of cocaine and marijuana u se. PRIMARY DIAGNOSIS Drug-induced psychosis. SECONDARY DIAGNOSES: 1. Drug induced mood disorder. 2. Stimulant use disorder, severe. 3. Schizoaffective disorder, bipolar type. PRINCIPAL PROCEDURES: Psychopharmacotherapy. SPECIAL PROCEDURES: None. HOSPITAL COURSE: Mr. Radha Ash is a 27-year-old black male t hat was admitted to Dr. Boston's team from 10/06/2017 to 10/08/2017. The patient was on unit restrictions along with elopement and standard P ICU precautions. The patient was ordered his discharge medications from previ day, which included Haldol, decanoate, and Prozac; however, he decli deepika these medications. He has also been here many times in the past and hi s course is similar. He refused to talk or cooperative. On the first day and refused all medications. On the second day, he was lucid ple asant with no SI, HI, or AVH. He was able to clearly tell me that his iss ues other drugs that he is chronically taking. He understands what will hap pen if he does not get help and refuses rehabilitation. He understands that continuing of illicit drug use could lead to possible , but inform me that he will stay away from them at this time, he wishes to leave against me dical advice. Again on the day of discharge, he denied any SI, HI, AVH, and felt that he was okay. He had been sleeping well. His plan includes callin g his family upon discharge from [facility] to pick him up. He states he kno ws the [facility] number to set up an appointment if he needs it. MENTAL STATUS EXAMINATION: General: Well groomed, well-nourished, black mal e with good eye contact, calm attitude, no psychomotor retardation or act ivation. No abnormal [facility] Discharge Summary PATIENT NAME: RADHA ASH PHYSICIAN: Kalyan mijares MD Admitted: MR NUMBER: [id number] DISCHARGED: 10/08/2017 01:1 1:00 DATE OF ADMISSION: 10/06/2017 The patient was admitted 10/06/2017 and discharg ed against medical advice on 10/08/2017. ATTENDING PHYSICIAN: Jean Boston MD REASON FOR ADMISSION: Radha Ash is a 27-year-old black male with a past psychiatric history of schizoaffective disorder, bipolar type, antisoci al personality disorder, Cocaine use, who presents to the [facility] ED c omplaining of a "psych problem" with command auditory hallucinations te lling him to hurt himself and others in the context of cocaine and marijuana u se. PRIMARY DIAGNOSIS Drug-induced psychosis. SECONDARY DIAGNOSES: 1. Drug induced mood disorder. 2. Stimulant use disorder, severe. 3. Schizoaffective disorder, bipolar type. PRINCIPAL PROCEDURES: Psychopharmacotherapy. SPECIAL PROCEDURES: None. HOSPITAL COURSE: Mr. Radha Ash is a 27-year-old black male t hat was admitted to Dr. Boston's team from 10/06/2017 to 10/08/2017. The patient was on unit restrictions along with elopement and standard P ICU precautions. The patient was ordered his discharge medications from day, which included Haldol, decanoate, and Prozac; however, he decli deepika these medications. He has also been here many times in the past and hi s course is similar. He refused to talk or cooperative. On the first day and refused all medications. On the second day, he was lucid ple asant with no SI, HI, or AVH. He was able to clearly tell me that his iss ues other drugs that he is chronically taking. He understands what will hap pen if he does not get help and refuses rehabilitation. He understands that continuing of illicit drug use could lead to possible , but inform me that he will stay away from them at this time, he wishes to leave against me dical advice. Again on the day of discharge, he denied any SI, HI, AVH, and felt that he was okay. He had been sleeping well. His plan includes callin g his family upon discharge from [facility] to pick him up. He states he kno ws the [facility] clinic number to set up an appointment if he needs it. MENTAL STATUS EXAMINATION: General: Well groomed, well-nourished, black mal e with good eye contact, calm attitude, no psychomotor retardation or act ivation. No abnormal Patient Name: RADHA ASH Account Number: [id number] movements. Speech: Regular rate, rhythm, and vol ume with good articulation. Mood and affect: Mood was "okay." Affect is eut hymic and is congruent with mood. Affect is even with normal range and inten sity. Perception: Denies any auditory or visual hallucinations. Denies an y illusions. Thought Process: Linear and logical and goal directed. T hought content: The patient denies any suicidal ideation, homicidal ideation, paranoia, ideas of reference and delusions. Insight and judgment: I nsight is full, the patient is aware of why he is here and has a full unders tanding of his drug use. Judgment is fair to poor. He does not believe he needs any rehabilitation with his drug use. He states that he will do delio t on his own. He was uncooperative with the treatment plan and refuse d medications. Cognition: Alertness and orientation. Alert and oriented to person, place, time and circumstance. He is able to state his full name, location, date and villavicencio at the hospital. Memory: Grossly intact. Registrati on short or long-term memory. Intellectual Functioning: Average. ATTENTION: Intact. He is able to stay focused through the i nterview. Gait normal. LABS: No new labs. DRUG REACTIONS INTERACTIONS: None. DISCHARGE MEDICATIONS: None. Discharge instructions were provided to the [facility]. Physical activity as tolerated. No driving restrictions. No diet rest rictions. FOLLOWUP: The patient states that he will call [facility] if he wants an appointment or needs any kind of rehabilitation. DISPOSITION: Mr. Radha Ash is currently stable. We are d ischarging the patient AMA to [facility] where he states he will call family t o pick him up. The patient's prognosis is poor as he has a history of repeate d substance abuse and inpatient hospitalizations 7 in the last year. H owever, if he is able to stay away from drugs. He should do okay. He has also been encouraged to abstain from illicit drug use. The importance of following through with this plan. Has been reviewed with the patient, with t he understanding that compliance will be crucial to the recovery. He h as been given the [facility] crisis hotline No. [phone] and information a [facility] if you would like to obtain therapy. Patient Name: RADHA ASH Account Number: [id number] movements. Speech: Regular rate, rhythm, and vol ume with good articulation. Mood and affect: Mood was "okay." Affect is eut hymic and is congruent with mood. Affect is even with normal range and inten sity. Perception: Denies any auditory or visual hallucinations. Denies an y illusions. Thought Process: Linear and logical and goal directed. T hought content: The patient denies any suicidal ideation, homicidal ideation, paranoia, ideas of reference and delusions. Insight and judgment: I nsight is full, the patient is aware of why he is here and has a full unders tanding of his drug use. Judgment is fair to poor. He does not believe he needs any rehabilitation with his drug use. He states that he will do delio t on his own. He was uncooperative with the treatment plan and refuse d medications. Cognition: Alertness and orientation. Alert and oriented to person, place, time and circumstance. He is able to state his full name, location, date and villavicencio at the hospital. Memory: Grossly intact. Registrati on short or long-term memory. Intellectual Functioning: Average. ATTENTION: Intact. He is able to stay focused through the i nterview. Gait normal. LABS: No new labs. DRUG REACTIONS INTERACTIONS: None. DISCHARGE MEDICATIONS: None. Discharge instructions were provided to the [facility]. Physical activity as tolerated. No driving restrictions. No diet rest rictions. FOLLOWUP: The patient states that he will call [facility] if he wants an appointment or needs any kind of rehabilitation. DISPOSITION: Mr. Radha Ash is currently stable. We are d ischarging the patient AMA to [facility] where he states he will call family t o pick him up. The patient's prognosis is poor as he has a history of repeate d substance abuse and inpatient hospitalizations 7 in the last year. H owever, if he is able to stay away from drugs. He should do okay. He has also been encouraged to abstain from illicit drug use. The importance of following through with this plan. Has been reviewed with the patient, with t he understanding that compliance will be crucial to the recovery. He h as been given the [facility] crisis hotline No. [phone] and information a [facility] if you would like to obtain therapy. Patient Name: RADHA ASH Account Number: [id number] movements. Speech: Regular rate, rhythm, and vol ume with good articulation. Mood and affect: Mood was "okay." Affect is eut hymic and is congruent with mood. Affect is even with normal range and inten sity. Perception: Denies any auditory or visual hallucinations. Denies an y illusions. Thought Process: Linear and logical and goal directed. T hought content: The patient denies any suicidal ideation, homicidal ideation, paranoia, ideas of reference and delusions. Insight and judgment: I nsight is full, the patient is aware of why he is here and has a full unders tanding of his drug use. Judgment is fair to poor. He does not believe he needs any rehabilitation with his drug use. He states that he will do delio t on his own. He was uncooperative with the treatment plan and refuse d medications. Cognition: Alertness and orientation. Alert and oriented to person, place, time and circumstance. He is able to state his full name, location, date and villavicencio at the hospital. Memory: Grossly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
--- NOTE | 2022-12-28 14:07 | EDPHYS ---
Physician Documentation [facility] Name: Teetee Samuels Age: 32 yrs Sex: Male : 1990 Arrival Date: 12/28/2022 Time: 13:45 Bed Waiting Private MD: ED Physician Marco Ryder HPI: 12/28 14:09 This 32 yrs old Black Male presents to ER via Ambulatory with complaints of Psych ms3 Problem. 14:09 32-year-old male with past medical history of ADD/ADHD, bipolar, depression, ms3 schizophrenia presents complaining of sari. Patient states he was discharged from senior living on December 21. Patient was on Effexor 150 mg daily, Abilify 30 mg daily, Cogentin 10 mg. Patient states he has not taken his medications since leaving senior living. Patient states he has medications at home. Patient would like to reach [facility] to have his medications changed. Patient states he does not have suicidal ideations, homicidal ideations, or hallucinations at this time. Historical: - Allergies: 14:03 Aspirin; nj1 - PMHx: 14:03 ADD/ADHD; Bipolar disorder; Depression; Schizophrenia; nj1 - Immunization history:: Adult Immunizations unknown. - Social history:: Smoking status: Patient reports the use of cigarette tobacco products, smokes one-half pack cigarettes per day. ROS: 14:09 Constitutional: Negative for fever, and chills. Neck: Negative for injury, pain, and ms3 swelling, Cardiovascular: Negative for chest pain, and palpitations. Respiratory: Negative for shortness of breath, cough, wheezing, and pleuritic chest pain, Abdomen/GI: Negative for abdominal pain, nausea, vomiting, diarrhea, and constipation, MS/Extremity: Negative for injury and deformity, Skin: Negative for injury, rash, and discoloration. 14:09 Psych: Positive for anxiety, Negative for depression, auditory hallucinations, visual hallucinations, homicidal ideation, suicide gesture, suicidal ideation. 14:09 All other systems are negative. Exam: 14:09 Constitutional: This is a well developed, well nourished patient who is awake, alert, ms3 and in no acute distress. Head/Face: Normocephalic, atraumatic. Neck: Trachea midline, no cervical lymphadenopathy. Supple, full range of motion without nuchal rigidity, or vertebral point tenderness. No Meningismus. Chest/axilla: Normal chest wall appearance and motion. Nontender with no deformity. Cardiovascular: Regular rate and rhythm with a normal S1 and S2. No gallops, murmurs, or rubs. Normal PMI, no JVD. No pulse deficits. Respiratory: Lungs have equal breath sounds bilaterally, clear to auscultation and percussion. No rales, rhonchi or wheezes noted. No increased work of breathing, no retractions or nasal flaring. Abdomen/GI: Soft, non-tender, with normal bowel sounds. No distension or tympany. No guarding or rebound. No evidence of tenderness throughout. Skin: Warm, dry with normal turgor. Normal color with no rashes, no lesions, and no evidence of cellulitis. MS/ Extremity: Pulses equal, no cyanosis. Neurovascular intact. Full, normal range of motion. Vital Signs: 13:54 BP 171 / 91; Pulse 110; Resp 18; Temp 98.8(O); Pulse Ox 100% on R/A; Weight 83.91 kg; nj1 Height 6 ft. 1 in. ; 13:54 Body Mass Index 24.41 (83.91 kg, 185.42 cm) nj1 MDM: 14:06 Patient medically screened. ms3 14:09 Differential diagnosis: psychosis secondary to non-compliance. Data reviewed: vital ms3 signs, nurses notes, and as a result, I will discharge patient. Care significantly affected by the following chronic conditions: ADD/ADHD, bipolar, depression, schizophrenia. Care significantly affected by the following Social Determinants of Health: Poor access to healthcare and/or lack of insurance. Counseling: I had a detailed discussion with the patient and/or guardian regarding: the historical points, exam findings, and any diagnostic results supporting the discharge/admit diagnosis, the need for outpatient follow up, to return to the emergency department if symptoms worsen or persist or if there are any questions or concerns that arise at home. Special discussion: I discussed with the patient/guardian in detail that at this point there is no indication for admission to the hospital. It is understood, however, that if the symptoms persist or worsen the patient needs to return immediately for re-evaluation. ED course: Discussed follow-up with the patient. Number for [place] given to patient. Patient understands agrees with plan. All questions were answered. Return precautions discussed include worsening symptoms, or any other concerns. Administered Medications: No medications were administered Disposition Summary: 12/28/22 14:07 Discharge Ordered Location: Home ms3 Condition: Stable ms3 Diagnosis - Bipolar disorder, unspecified ms3 - Schizoaffective disorder, bipolar type ms3 Followup: ms3 - With: Private Physician - When: 2 - 3 days - Reason: Recheck today's complaints, [facility]: Discharge Instructions: - Discharge Summary Sheet ms3 - Schizoaffective Disorder ms3 Forms: - Medication Reconciliation Form ms3 - Thank You Letter ms3 - Antibiotic Education ms3 - Prescription Opioid Use ms3 - [email or web address] ms3 Signatures: Marco Ryder DO DO ms3 Arlet Hinkle RN RN nj1 Corrections: (The following items were deleted from the chart) 14:11 14:09 Psych: Positive for anxiety, ms3 ms3
--- NOTE | 2022-12-28 14:07 | ER ---
Nurse's Notes [facility] Name: Teetee Samuels Age: 32 yrs Sex: Male : 1990 Arrival Date: 12/28/2022 Time: 13:45 Bed Waiting Private MD: Diagnosis: Bipolar disorder, unspecified;Schizoaffective disorder, bipolar type Presentation: 12/28 13:54 Chief complaint: Patient states: Not taking meds since he got out of half[place]way Dec 21. nj Feeling manic. Denies suicidal/homicidal ideations. Wants transportation to [place]. 13:54 Method Of Arrival: Ambulatory [facility] 13:54 Coronavirus screen: Vaccine status:. Ebola Screen: Patient denies travel to an [facility] Ebola-affected area in the 21 days before illness onset. Initial Sepsis Screen: Does the patient meet any 2 criteria? HR > 90 bpm. No. Patient's initial sepsis screen is negative. Does the patient have a suspected source of infection? No. Patient's initial sepsis screen is negative. Risk Assessment: Do you want to hurt yourself or someone else? Patient reports no desire to harm self or others. Onset of symptoms Onset of symptoms was December 21, 2022. 13:54 Acuity: NAYLA 4 [facility] Triage Assessment: 14:05 General: Appears in no apparent distress. comfortable, Behavior is calm, cooperative, nj1 appropriate for age. 14:05 Pain: Denies pain. Neuro: Level of Consciousness is awake, alert, obeys commands, nj1 Oriented to person, place, time, situation. Cardiovascular: Patient's skin is warm and dry. Respiratory: Airway is patent Respiratory effort is even, unlabored. Historical: - Allergies: 14:03 Aspirin; nj1 - PMHx: 14:03 ADD/ADHD; Bipolar disorder; Depression; Schizophrenia; nj1 - Immunization history:: Adult Immunizations unknown. - Social history:: Smoking status: Patient reports the use of cigarette tobacco products, smokes one-half pack cigarettes per day. Vital Signs: 13:54 BP 171 / 91; Pulse 110; Resp 18; Temp 98.8(O); Pulse Ox 100% on R/A; Weight 83.91 kg; nj1 Height 6 ft. 1 in. ; 13:54 Body Mass Index 24.41 (83.91 kg, 185.42 cm) nj1 ED Course: 13:47 Patient arrived in ED. rg4 13:48 Marco Ryder DO is Attending Physician. ms3 14:03 Triage completed. nj1 14:04 Arm band placed on right wrist. nj1 14:20 No provider procedures requiring assistance completed. Patient did not have IV access nj1 during this emergency room visit. Administered Medications: No medications were administered Outcome: 14:07 Discharge ordered by MD. ms3 14:20 Discharged to home ambulatory. nj1 14:20 Condition: stable 14:20 Discharge instructions given to patient, Instructed on discharge instructions, follow up and referral plans. Demonstrated understanding of instructions, follow-up care. 14:28 Patient left the ED. nj1 Signatures: Kathy David rg4 Marco Ryder DO DO ms3 Arlet Hinkle, RN RN nj1 Corrections: (The following items were deleted from the chart) 14:05 13:54 BP 171 / 91; Pulse 110bpm; Resp 18bpm; Pulse Ox 100% RA; nj1 nj1
[2022-12-28 14:35] VITALS: BP 171/91; TEMP 98.8; O2SAT 100
== END 2022-12-28 14:28 | disposition home or self-care (01) ==
LOC: ER 13:45
DX: F25.0 Schizoaffective disorder, bipolar type (principal)
CPT/HCPCS: 99282

== ENCOUNTER 2023-01-02 22:12 | Emergency (ER) | payer SELFPAY ==
--- OUTSIDE RECORDS SUMMARY | 2023-01-02 22:18 | XMS REPORT | Continuity of Care Document ---
:1990 Author Organization [facility] t Address [address] [address] [place] [address] Care Team Providers Name Role Phone UNKNOWN, REFFERING Primary Care Physician Unavailable Javi Anaya Attending Clinician Unavailable ADIS MASCORRO Attending Clinician Unavailable ANNALEE RANDALL Attending Clinician Unavailable JEAN BOSTON M.D., Aroldo PENA Attending Clinician Unavailable JOSELYN HENRY M.D., JOSELYN Marrero M.D. Attending Clinician Unavailable ADIS MASCORRO Admitting Clinician Unavailable ANNALEE RANDALL Admitting Clinician Unavailable JEAN BOSTON M.D., JEAN Admitting Clinician Unavail able JOSELYN HENRY M.D., JOSELYN Marrero Admitting Clinician Unaseun rueda Payers Payer Name Policy Type Policy Number Effective Date Expiration Date S ource Problems This patient has no known problems. Allergies, Adverse Reactions, Alerts Allergy Allergy Status Severity Reaction(s) Onset Inactive Treating Comm ents Source Name Type Date Date Clinician Unable [facility]: 00 G6PD DA Active U Unknown [facility] DEFICIEN 12-29 CY 00:00: 00 Social History Social Habit Start Date Stop Date Quantity Comments Source History of Current smoker [facility] Alcohol intake 2017-10-27 2017-10-27 Current drinker MERCED Crane 00:00:00 00:00:00 of [facility] Tobacco use and 2017-10-27 2017-10-27 User of smokeless [facility] [place] exposure 00:00:00 00:00:00 [facility] Sex Assigned At [birth year] [facility] [place] 00:00:00 [facility]00 [facility] Smoking Status Start Date Stop Date Source Ex-smoker 2017-10-27 00:00:00 2017-10-27 00:00:00 [facility] Medications This patient has no known medications. Procedures This patient has no known procedures. Encounters Start End Encounter Admission Attending Care Care Encounter Source Date/Time Date/Time Type Type Clinicians Facility Department ID 2022-12-29 2022-12-29 Emergency [facility] [id number] [facility] 15:22:00 15:22:00 70 2022-12-29 2022-12-29 Emergency Emergency Héctor, [facility] [id number] [facility] 15:22:00 15:22:00 Javi 70 2017-10-22 2017-10-22 Emergency E ADIS MASCORRO [facility] [id number] 09:20:00 09:20:00 [facility] 2017-10-15 2017-10-15 Emergency E [facility] [id number] 13:50:00 13:50:00 AMIR [facility] 2017-06-03 2017-06-07 Inpatient C AMARILIS, [facility] [id number] [address] 16:44:00 12:47:00 [facility] 2017-04-05 2017-04-05 Emergency E [facility] [id number] [address] 18:09:00 18:09:00 [facility] 2017-03-18 2017-03-18 Inpatient E DARVIN, [facility] [id number] [address] 17:13:00 17:13:00 JEAN Correa [facility] Results Test Description Test Time Test Comments Results Result Comments Source Complete Blood Count Auto Diff 2022-12-29 17:11:00 Test Item Value Reference Range Interpretation Comme nts White Blood Count (test code = WBCT) 8.1 x10 3/uL 4.4-10.5 N Red Blood Count (test code = RBC) 4.15 x10 6/uL 4.10-5.70 N Hemoglobin (test code = HGBT) 12.5 g/dL 13.4-17.4 L Hematocrit (test code = HCTT) 37.3 % 38.7-52.0 L Mean Corpuscular Volume (test code = MCV) 89.90 fL 80.00-100.00 N Mean Corpuscular Hemoglobin (test code = MCH) 30.1 pg 27.0-32. 5 N Mean Corpuscular HGB Conc (test code = MCHC) 33.50 g/dL 32.00-37. 50 N RDW Coefficient of Variation (test code = RDWCV) 13.2 % 11.5- 14.5 N Platelet Count (test code = PLTT) 306 x10 3/uL 140.0-440.0 N Mean Platelet Volume (test code = MPV) 9.8 fL Immature Granulocytes % (Auto) (test code = IMMGRAN%) 0.2 % 0.0-5.0 N Neutrophils % (Auto) (test code = NE%) 66.5 % 36.0-70.0 N Lymphocytes % (Auto) (test code = LY%) 20.3 % 12.0-44.0 N Monocytes % (Auto) (test code = MO%) 12.1 % 0.0-11.0 H Eosinophils % (Auto) (test code = EO%) 0.4 % 0.0-7.0 N Basophils % (Auto) (test code = BA%) 0.5 % 0.0-2.0 N Immature Granulocytes # (Auto) (test code = IMMGRAN#) 0.02 x10 3/uL Neutrophils # (Auto) (test code = NE#) 5.4 x10 3/uL 1.6-7.4 N Lymphocytes # (Auto) (test code = LY#) 1.65 x10 3/uL 0.50-4.60 N Monocytes # (Auto) (test code = MO#) 0.98 x10 3/uL 0.00-1.20 N Eosinophils # (Auto) (test code = EO#) 0.03 x10 3/uL 0.00-0.74 N Basophils # (Auto) (test code = BA#) 0.04 x10 3/uL 0.00-0.21 N nRBC Abs (test code = NRBCA) 0 nRBC Pct (test code = NRBCP) 0 % Comprehensive Metabolic [id number] 17:11:00 Test Item Value Reference Range Interpretation Comments SODIUM (test code = NA) 136.0 mmol/L 136.0-145.0 N Potassium,K (test code = 3.4 mmol/L 3.0-5.1 N K) Chloride (test code = 107 mmol/L 98-107 N CL) Carbon Dioxide (test 22 mmol/L 20-31 N code = CO2) Anion Gap (test code = 8 mmol/L 5-15 N GAP) Blood Urea Nitrogen 27 mg/dL 9-23 H (test code = BUN) Creatinine (test code = 1.25 mg/dL 0.55-1.02 H CREATT) Creatinine Clr Calc 94.10 mL/min Pharmacy (test code = CRCLPHA) Estimated Glomerular 77 See_Comment L Reporte d eGFR is Filt Rate (test code = based on the EGFR.XX) CKD-EPI 2020 equation thatdo es not use a race coefficient. Additional information can be found at:[email or web address]_r cb_ egfr_summary_fl shantal 5.pdf (kidney.o rg) [Automated message] The system which generated this result transmit marie reference range : >=90 ml/min/1.73m2. The reference range was not used to interpret this result as normal/abnormal . BUN/Creatinine Ratio 22 ratio 10-20 H (test code = BCRATIO) Glucose (test code = 109 mg/dL 74-106 H GLU) Osmolality,Calculated 287.6 (test code = OSMOC) Calcium (test code = CA) 9.1 mg/dL 8.3-10.6 N Bilirubin,Total (test 1.7 mg/dL 0.2-1.1 H code = BILIT) Aspartate Amino 77 U/L 0-34 H Transferase (test code = AST) Alanine Aminotransferase 70 U/L 10-49 H (test code = ALT) Total Protein (test code 7.5 g/dL 5.7-8.2 N = TP) Albumin Level (test code 4.2 g/dL 3.2-4.8 N = ALB) Globulin (test code = 3.3 mg/dL 2.3-3.5 N GLOB) Albumin/Globulin Ratio 1.3 ratio 0.8-2.0 N (test code = AGRATIO) Alkaline Phosphatase 72 U/L 46-116 N (test code = ALP) Ethanol [id number] 17:11:00 Test Item Value Reference Range Interpretation Comments Ethanol (test code < 3 mg/dL The pharm acological = ETOH) response to blo od alcohol levels mayvary from individual to i ndividual. The fatal mono ntrationhas been reported t o be >400mg/dL. XR Forearm 2 Views [id number] 18:12:48Patient: RADHA ASH Date/Time12/22/2017 18:05 CDTReason for Examfoeriegn body in forearm;Other (please specify)ReportExam: XR Forearm 2 Views LeftLocation code: G33Hvhrkix: Other (please specify);foreign body in forearmComparison: None availableFINDINGS:AP views of the left forearm were obtained before and after foreign body removal. There is linear radiopacity within the lateral soft tissues on AP imaging adjacent to the radius. There is removal of this foreign body. No remnant foreign body is visualized. There is no acute fracture or dislocation.IMPRESSION:AP radiographs demonstrate in toto removal of radiopaque foreign body. Final Dictated by: MD Reyez Alan FDictated DT/TM: 12/22/2017 6:09 pmSigned by: MD Reyez Alan FSigned (Electronic Signature): 12/22/20176:12 pmXR Hand Complete 3+ Views [id number] 15:24:46Patient: RADHA ASH Date/Time11/17/2017 15:00 CDTReason for ExamForeign Body;Foreign bodyReportXR Hand Complete 3+ Views RightLOCATION: [id number]:Foreign body;Foreign BodyCOMPARISON: None.DISCUSSION:Frontal, oblique, and lateral radiographs of the right hand were obtained.No radiopaque foreign body is seen.No acute fracture or dislocation is seen.No suspicious lytic or blastic osseous lesion is seen.The joint spaces are preserved.IMPRESSION:No acute osseous abnormalities.No radiopaque foreign body. Final Dictated by: MD Slade Alfred EDictated DT/TM: 018 3:23 pmSigned by: MD Slade Alfred ESigned (Electronic Signature): 11/17/2017 3:24 pmCBC with [id number] 10:35:00 Test Item Value Reference Range Interpretation Comments WBC (test code = WBC) 6.3 K/cumm [...] 11.5-14.5 N Platelet Count (test code = 370 K/cumm 140-440 N PLTCT) MPV (test code = MPV) 9.4 fL [...] code = ALYMPH) 2.3 K/cumm 0.5-4.6 N Custer Abs (test code = AMONO) 0.5 K/cumm 0.0-1.2 N Eos Abs (test code = AEOS) 0.09 K/cumm 0.00-0.74 N Baso Abs (test code = ABASO) 0.0 K/cumm 0.00-0.21 N Comprehensive Metabolic [id number] 10:23:00 Test Item Value Reference Range Interpretation [...] validated by th e MDRD study and jahul d be interpretedwith caution.eGFR Re sult Interpretation: eGFR > or = 60 is in t he Normal RangeeGF R < 60 may mean kidney diseaseeGFR < 1 5 may mean kidney failureRange s recommended by the National Kidney Foundation,http ://nkd ep.nih.gov [id number] 04:55:00 Test Item Value Reference Range Interpretation [...] g/dL 0.00-0.01 N code = ETOHU) Urinalysis [id number] 04:42:00 Test Item Value Reference Range Interpretation Comments Color (test code = COLOR) Yellow Yellow,Straw,Pl N yellow Clarity (test code = Clear Clear N CLAR) Specific [place] (test 1.017 1.001-1.035 N code = SPGR) [...] code = Not indicated MEXAM) Comprehensive Metabolic [id number] 14:57:00 Test Item Value Reference Range Interpretation [...] imated value,calculate d from the patient's s isidar creatinine usin g the MDRD equation.I t [...] validated by th e MDRD study and toña bishop be interpretedwith caution.eGFR Re sult Interpretation: eGFR > or = 60 is in t he Normal RangeeGF R < 60 may mean kidney diseaseeGFR < 1 5 may mean kidney failureRange s recommended by the National Kidney Foundation,http ://nkd ep.nih.gov CBC with [id number] 14:41:00 Test Item Value Reference Range Interpretation [...] code = ALYMPH) 2.8 K/cumm 0.5-4.6 N Custer Abs (test code = AMONO) 0.4 K/cumm 0.0-1.2 N Eos Abs (test code = AEOS) 0.18 K/cumm 0.00-0.74 N Baso Abs (test code = ABASO) 0.0 K/cumm 0.00-0.21 N RPR, [id number] 10:41:00 Test Item Value Reference Range Interpretation Comments RPR (test code = RPR) Non-Reactive Non-Reactive N Thyroid Stimulating Hormone (TSH)2017-10-07 08:03:00 Test Item Value Reference Range Interpretation Comments TSH (test code = TSH) 1.70 mIU/mL 0.270-4.200 N Lipid [id number] 07:56:00 Test Item Value Reference Range Interpretation Comments Cholesterol (test 151 mg/dL 0-200 N code = CHOL) Triglycerides (test 54 mg/dL 9-200 N code = TRIG) HDL (test code = 78 mg/dL 40-60 H HDL) Chol/HDL (test code 1.9 Ratio 0.0-5.0 N = CHOLPHDL) LDL, Calculated 62 0-130 N (NOTE)RISK O F HEART (test code = LDLC) DISEASEPu blished by [place] Heart AssociationAnal yte Optimal Boderli ne Increased RiskC HOL <200 200-239 >240TRI G <150 150-199 >200HDL Male: >60 <40HDL Fema le: >60 <50LDL <100 130 -159 >160LDL NEAR OP TIMAL IS 100-129 VLDL (test code = 11 mg/dL 5-40 N VLDL) LDL/HDL (test code = 1 LDLPHDL) [id number] 14:40:00 Test Item Value Reference Range Interpretation [...] code = THC) POSITIVE Negative A Urinalysis [id number] 12:56:00 Test Item Value Reference Range Interpretation Comments Color (test code = COLOR) Yellow Yellow,Straw,Pl N yellow Clarity (test code = Clear Clear N CLAR) Specific [place] (test 1.020 1.001-1.035 N code = SPGR) [...] code = Not indicated MEXAM) Comprehensive Metabolic [id number] 08:13:00 Test Item Value Reference Range Interpretation [...] National Kidney Foundation,http ://nkd ep.nih.gov CBC with [id number] 07:59:00 Test Item Value Reference Range Interpretation [...] code = ALYMPH) 1.6 K/cumm 0.5-4.6 N Custer Abs (test code = AMONO) 0.5 K/cumm 0.0-1.2 N Eos Abs (test code = AEOS) 0.19 K/cumm 0.00-0.74 N Baso Abs (test code = ABASO) 0.0 K/cumm 0.00-0.21 N RPR, [id number] 11:46:00 Test Item Value Reference Range Interpretation Comments RPR (test code = RPR) Non-Reactive Non-Reactive N Thyroid Stimulating Hormone (TSH)2017-06-18 08:48:00 Test Item Value Reference Range Interpretation Comments TSH (test code = TSH) 0.86 mIU/mL 0.270-4.200 N Lipid [id number] 08:40:00 Test Item Value Reference Range Interpretation Comments Cholesterol (test 157 mg/dL 0-200 N code = CHOL) Triglycerides (test 120 mg/dL 9-200 N code = TRIG) HDL (test code = 86 mg/dL 40-60 H HDL) Chol/HDL (test code 1.8 Ratio 0.0-5.0 N = CHOLPHDL) LDL, Calculated 47 0-130 N (NOTE)RISK O F HEART (test code = LDLC) DISEASEPu blished by [place] Heart AssociationAnal yte Optimal Boderli ne Increased RiskC HOL <200 200-239 >240TRI G <150 150-199 >200HDL Male: >60 <40HDL Fema le: >60 <50LDL <100 130 -159 >160LDL NEAR OP TIMAL IS 100-129 VLDL (test code = 24 mg/dL 5-40 N VLDL) LDL/HDL (test code = 1 LDLPHDL) Alcohol/Ethanol, [id number] 16:31:00 Test Item Value Reference Range Interpretation Comments Alcohol, Ethyl <0.01 g/dL 0.00-0.01 N Intoxicated 0 .080 g/dL (test code = ETOH) or more Comprehensive Metabolic [id number] 16:31:00 Test Item Value Reference Range Interpretation [...] is not provided , and the patient isManolo-Harjit can, multiply by 1.2 12. If sex is not prov ided, and thepatient is female, multipl y by 0.742. Results for patients <18 ye ars ofage have not been validated by th e MDRD study and toña d be interpretedwith caution.eGFR Re sult Interpretation: eGFR > or = 60 is in t he Normal RangeeGF R < 60 may mean kidney diseaseeGFR < 1 5 may mean kidney failureRange s recommended by the National Kidney Foundation,http ://nkd ep.nih.gov CBC with [id number] 16:14:00 Test Item Value Reference Range Interpretation [...] code = ALYMPH) 1.4 K/cumm 0.5-4.6 N Custer Abs (test code = AMONO) 0.5 K/cumm 0.0-1.2 N Eos Abs (test code = AEOS) 0.07 K/cumm 0.00-0.74 N Baso Abs (test code = ABASO) 0.0 K/cumm 0.00-0.21 N Comprehensive Metabolic [id number] 01:59:00 Test Item Value Reference Range Interpretation [...] the National Kidney Foundation,http ://nkd ep.nih.gov Alcohol/Ethanol, [id number] 01:59:00 Test Item Value Reference Range Interpretation Comments Alcohol, Ethyl <0.01 g/dL 0.00-0.01 N Intoxicated 0 .080 g/dL (test code = ETOH) or more [id number] 01:56:00 Test Item Value Reference Range Interpretation [...] 0.00-0.01 N code = ETOHU) CBC with [id number] 01:55:00 Test Item Value Reference Range Interpretation [...] code = ALYMPH) 2.8 K/cumm 0.5-4.6 N Custer Abs (test code = AMONO) 0.5 K/cumm 0.0-1.2 N Eos Abs (test code = AEOS) 0.18 K/cumm 0.00-0.74 N Baso Abs (test code = ABASO) 0.0 K/cumm 0.00-0.21 N RPR, [id number] 05:53:00 Test Item Value Reference Range Interpretation Comments RPR (test code = RPR) Non-Reactive Non-Reactive N Thyroid Stimulating Hormone (3rd Gen)2017-05-06 00:09:00 Test Item Value Reference Range Interpretation Comments TSH (test code = TSH) 2.26 mIU/mL 0.270-4.200 N Lipid [id number] 00:09:00 Test Item Value Reference Range Interpretation Comments Cholesterol (test 197 mg/dL 0-200 N code = CHOL) Triglycerides (test 146 mg/dL 9-200 N code = TRIG) HDL (test code = 83 mg/dL 40-60 H HDL) Chol/HDL (test code 2.4 Ratio 0.0-5.0 N = CHOLPHDL) LDL, Calculated 85 0-130 N (NOTE)RISK O F HEART (test code = LDLC) DISEASEPu blished by [place] Heart AssociationAnal yte Optimal Boderli ne Increased RiskC HOL <200 200-239 >240TR IG <150 150-199 >200HDL Male: >60 <40HDL Fema le: >60 <50LDL <100 130 -159 >160LDL NEAR OP TIMAL IS 100-129 VLDL (test code = 29 mg/dL 5-40 N VLDL) LDL/HDL (test code = 1 LDLPHDL) Comprehensive Metabolic [id number] 21:34:00 Test Item Value Reference Range Interpretation [...] by the National Kidney Foundation,http ://nkd ep.nih.gov [id number] 21:17:00 Test Item Value Reference Range Interpretation [...] 0.00-0.01 N code = ETOHU) CBC with [id number] 21:15:00 Test Item Value Reference Range Interpretation [...] code = ALYMPH) 2.2 K/cumm 0.5-4.6 N Custer Abs (test code = AMONO) 0.6 K/cumm 0.0-1.2 N Eos Abs (test code = AEOS) 0.10 K/cumm 0.00-0.74 N Baso Abs (test code = ABASO) 0.0 K/cumm 0.00-0.21 N Valproic Acid (Depakote),[id number] 09:44:00 Test Item Value Reference Range Interpretation Comments Valproic Acid (test code = VALP) 67.3 ug/mL 50.0-100.0 N Valproic Acid (Depakote),[id number] 21:18:00 Test Item Value Reference Range Interpretation Comments Valproic Acid (test code = VALP) 46.7 ug/mL 50.0-100.0 L RPR, [id number] 12:29:00 Test Item Value Reference Range Interpretation Comments RPR (test code = RPR) Non-Reactive Non-Reactive N Thyroid Stimulating Hormone (TSH)2017-03-19 09:08:00 Test Item Value Reference Range Interpretation Comments TSH (test code = TSH) 3.69 mIU/mL 0.270-4.200 N Lipid [id number] 09:02:00 Test Item Value Reference Range Interpretation Comments Cholesterol (test 166 mg/dL 0-200 N code = CHOL) Triglycerides (test 37 mg/dL 9-200 N code = TRIG) HDL (test code = 92 mg/dL 40-60 H HDL) Chol/HDL (test code 1.8 Ratio 0.0-5.0 N = CHOLPHDL) LDL, Calculated 67 0-130 N (NOTE)RISK O F HEART (test code = LDLC) DISEASEPu blished by [place] Heart AssociationAnal yte Optimal Boderl ine Increased RiskC HOL <200 200-239 >240TRI G <150 150-199 >200HDL Male: >60 <40HDL Fema le: >60 <50LDL <100 130 -159 >160LDL NEAR OP TIMAL IS 100-129 VLDL (test code = 7 mg/dL 5-40 N VLDL) LDL/HDL (test code = 1 LDLPHDL) CBC with [id number] 13:48:00 Test Item Value Reference Range Interpretation [...] code = 1.0 K/cumm 0.5-4.6 N ALYMPH) Custer Abs (test code = 0.1 K/cumm 0.0-1.2 N AMONO) Eos Abs (test code = 0.10 K/cumm 0.00-0.74 N AEOS) Baso Abs (test code = 0.0 K/cumm 0.00-0.21 N ABASO) RBC Morphology (test Normal code = RBCMRPH) Platelet Est (test code Normal Platelet on = PLTEST) Smear [id number] 13:36:00 Test Item Value Reference Range Interpretation [...] = THC) Negative Negative N Comprehensive Metabolic [id number] 13:00:00 Test Item Value Reference Range Interpretation [...] validated by th e MDRD study and toña bishop be interpretedwith caution.eGFR Re sult Interpretation: eGFR > or = 60 is in t he Normal RangeeGF R < 60 may mean kidney diseaseeGFR < 1 5 may mean kidney failureRange s recommended by the National Kidney Foundation,http ://nkd ep.nih.gov Urinalysis [id number] 12:44:00 Test Item Value Reference Range Interpretation Comments Color (test code = COLOR) Yellow Yellow,Straw,Pl N yellow Clarity (test code = Clear Clear N CLAR) Specific [place] (test 1.010 1.001-1.035 N code = SPGR) [...] Notes Date/Time Note Provider Source 2017-10-19 08:54:39-00:00 [facility] Discharge Summary PATIENT NAME: RADHA ASH PHYSICIAN: Kalyan mijares MD Admitted: MR NUMBER: [id number] DISCHARGED: 10/08/2017 01:1 1:00 DATE OF ADMISSION: 10/06/2017 The patient was admitted 10/06/2017 and discharg ed against medical advice on 10/08/2017. ATTENDING PHYSICIAN: Jean Boston MD REASON FOR ADMISSION: Deontray Black is a 27-year-old black male with a past psychiatric history of schizoaffective disorder, bipolar type, antisoci al personality disorder, Cocaine use, who presents to the [facility] c omplaining of a "psych problem" [...] patient was ordered his discharge medications from [facility] day, which included Haldol, decanoate, and Prozac; [...] callin g his family upon discharge from [facility] to pick him up. He states he kno ws the [facility] number to set up an appointment if he needs it. MENTAL STATUS EXAMINATION: General: Well groomed, well-nourished, black mal e with good eye contact, calm attitude, no psychomotor retardation or act ivation. No abnormal [facility] Discharge Summary PATIENT NAME: RADHA ASH PHYSICIAN: Kalyan mijares MD Admitted: MR NUMBER: [id number] DISCHARGED: 10/08/2017 01:1 1:00 DATE OF ADMISSION: 10/06/2017 The patient was admitted 10/06/2017 and discharg ed against medical advice on 10/08/2017. ATTENDING PHYSICIAN: Jean Boston MD REASON FOR ADMISSION: Radha Ash is a 27-year-old black male with a past psychiatric history of schizoaffective disorder, bipolar type, antisoci al personality disorder, Cocaine use, who presents to the [facility] ED c omplaining of a "psych problem" [...] callin g his family upon discharge from [facility] to pick him up. He states he kno ws the [facility] number to set up an appointment if he needs it. MENTAL STATUS EXAMINATION: General: Well groomed, well-nourished, black mal e with good eye contact, calm attitude, no psychomotor retardation or act ivation. No abnormal [facility] Discharge Summary PATIENT NAME: RADHA ASH PHYSICIAN: Kalyan mijares MD Admitted: MR NUMBER: [id number] DISCHARGED: 10/08/2017 01:1 1:00 DATE OF ADMISSION: 10/06/2017 The patient was admitted 10/06/2017 and discharg ed against medical advice on 10/08/2017. ATTENDING PHYSICIAN: Jean Boston MD REASON FOR ADMISSION: Radha Ash is a 27-year-old black male with a past psychiatric history of schizoaffective disorder, bipolar type, antisoci al personality disorder, Cocaine use, who presents to the [facility] c omplaining of a "psych problem" [...] patient was ordered his discharge medications from , which included Haldol, decanoate, and Prozac; however, [...] callin g his family upon discharge from [facility] to pick him up. He states he kno ws the [facility] number to set up an appointment if he needs it. MENTAL STATUS EXAMINATION: General: Well groomed, well-nourished, black mal e with good eye contact, calm attitude, no psychomotor retardation or act ivation. No abnormal Patient Name: RADHA ASH Account Number: [id number] movements. Speech: Regular rate, rhythm, and vol [...] The patient states that he will call [facility] if he wants an appointment or needs any kind of rehabilitation. DISPOSITION: Mr. Radha Ash is currently stable. We are d ischarging the patient AMA to [place] where he states he will call family [...] recovery. He h as been given the [facility] crisis hotline No. [phone] and information a [facility] if you would like to obtain therapy. Patient Name: RADHA ASH Account Number: [id number] movements. Speech: Regular rate, rhythm, and vol [...] The patient states that he will call [facility] if he wants an appointment or needs any kind of rehabilitation. DISPOSITION: Mr. Radha Ash is currently stable. We are d ischarging the patient AMA to [place] where he states he will call family [...] recovery. He h as been given the [facility] crisis hotline No. [phone] and information a [facility] if you would like to obtain therapy. Patient Name: RADHA ASH Account Number: [id number] movements. Speech: Regular rate, rhythm, and vol [...] The patient states that he will call [facility] if he wants an appointment or needs any kind of rehabilitation. DISPOSITION: Mr. Radha Ash is currently stable. We are d ischarging the patient AMA to [place] where he states he will call family [...] recovery. He h as been given the [facility] crisis hotline No. [phone] and information a [facility] if you would like to obtain therapy. Patient Name: RADHA ASH Account Number: [id number] MD Jean Taylor MD TP/TAB TD: 10/08/2017 16:25 CC:Jean Boston MD Patient Name: RADHA ASH Account Number: [id number] MD Jean Taylor MD TP/TAB TD: 10/08/2017 16:25 CC:Jean Boston MD Electronically Authenticated by: Kalyan Mckeon MD On 10/19/2017 08:54 AM CDT Patient Name: RADHA ASH Account Number: [id number] MD Jean Taylor MD TP/TAB TD: 10/08/2017 16:25 CC:Jean Boston MD Electronically Authenticated by: Kalyan Mckeon MD On 10/19/2017 08:54 AM CDT Electronically Authenticated by: Jean Boston MD On 10/19/2017 05:40 PM CDT 2017-10-19 08:54:25-00:00 [facility] Psych Eval PATIENT NAME: RADHA ASH PHYSICIAN: Kalyan mijares MD Admitted: MR NUMBER: [id number] DISCHARGED: Psych Eval Patient Name: RADHA ASH Date of October 07, 2017 Service: Date of : February 17 Clinician: Kalyan Mckeon MD User Field 1: J Encounter Visit: [facility] User Field 3: J Referring Jean Boston Clinician: PSYCHIATRIC EVALUATION DATE OF EVALUATION: 10/07/2017 TIME: 07:00 a.m. ATTENDING PHYSICIAN: Jean Boston MD INFORMANTS: Include the patient and [facility] recor d. CHIEF COMPLAINT: 'I am not answering any fucking questions.' HISTORY OF PRESENT ILLNESS: Radha Ash is a 27-year-old black male with a past psychiatric history of schizoaffective disorder, polysubstance use and antisocial personality disorder, who presents to the [facility] ED, c omplaining of a 'psychiatric problem.' [...] Psychiatrist, he has had followup arranged with [facility] scheduled, but does not follow up. Therapist, none. CURRENT PSYCHOTROPIC MEDICATIONS: The patient was last discharged on Haldol Decano ate 100 mg IM and Prozac 40 mg every day. PAST MEDICATIONS: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
[2023-01-02] MEDS ORDERED: WATER FOR INJ,STERILE 10 ML ONE (23:11)
[2023-01-02] MEDS ORDERED: ZIPRASIDONE MESYLA 20 MG/VIAL IM ONE (23:11)
--- NOTE | 2023-01-03 05:44 | EDPHYS ---
Physician Documentation [facility] Name: Teetee Samuels Age: 32 yrs Sex: Male : 1990 Arrival Date: 01/02/2023 Time: 22:12 Bed 18 Private MD: ED Physician Kenneth Hall HPI: 01/03 03:23 This 32 yrs old Black Male presents to ER via EMS with complaints of Psych Problem. kdr 03:23 Patient was picked up locally by the police department patient was wandering in a kdr parking lot somewhere stating that he was trying to get to his doctor's appointment for his mental health check. Patient states he has not slept in 3 days. Patient has denied suicidal thoughts or homicidal thoughts to nursing staff and police. Patient is otherwise relatively cooperative. Patient does admit to audio and visual hallucinations but cannot describe them. EMS said the patient was at a convenience store near [place]. Reportedly the patient had asked to go to a mental health facility but when told that he could only come to the ED then he opted to come here. Patient otherwise has noes focal complaints. Onset: The symptoms/episode began/occurred at an unknown time. Severity of symptoms: At their worst the symptoms were moderate severe incapacitating just prior to arrival, in the emergency department the symptoms are unchanged. It is unknown whether or not the patient has had similar symptoms in the past. It is unknown whether or not the patient has recently seen a physician. Historical: - Allergies: 01/02 22:22 Aspirin; cm10 - PMHx: 22:22 ADD/ADHD; Bipolar disorder; Depression; Schizophrenia; cm10 - Immunization history:: Adult Immunizations unknown. - Social history:: Smoking status: unknown. ROS: 01/03 03:23 Constitutional: Patient is unable to answer questions appropriately about his condition kdr or his history. He only wanted food. Exam: 03:23 Constitutional: A detailed physical exam was not performed since the patient was kdr deemed too agitated to attempt to force and evaluation/physical exam Head/Face: Normocephalic, atraumatic. 03:23 Psych: Behavior/mood is cooperative, anxious, inappropriate for age, Paranoid. Affect is animated, Oriented to person, place, Not oriented to time, Denies suicidal or homicidal thoughts, Judgement / Insight is impaired. Delusions/hallucinations Patient had told nursing staff and EMS that he was having hallucinations but does not admit to that now. Vital Signs: 01/02 22:18 BP 129 / 91; Pulse 96; Resp 18; Temp 98.3; Pulse Ox 97% on R/A; cm10 MDM: 01/03 03:23 Data reviewed: vital signs, nurses notes, lab test result(s), radiologic studies. kdr 05:44 Patient medically screened. kdr 05:45 ED course: The patient refused to comply with any staff request. Since the patient was kdr not suicidal or homicidal he was stable for discharge. Since the patient was refusing to cooperate with staff and would not call his mother for assistance, police were called to help manage the patient's discharge from the hospital. 01/02 22:43 Order name: Suicide Screening (Parag); Complete Time: 00:58 kdr Administered Medications: 01/02 22:59 CANCELLED (Inappropriate at this time): DOPamine 0.5 mcg/kg/min IV at calculated rate cm10 continuous 23:12 Drug: Geodon IM 20 mg Route: IM; Site: right deltoid; cm10 Disposition Summary: 01/03/23 05:44 Discharge Ordered Location: Home kdr Problem: an ongoing problem kdr Symptoms: are unchanged kdr Condition: Stable kdr Diagnosis - Bipolar disorder, current episode depressed, mild or moderate severity kdr - Attention-deficit hyperactivity disorder, other type kdr - Schizophrenia, unspecified kdr - Other depressive episodes kdr Followup: kdr - With: Private Physician - When: 2 - 3 days - Reason: If symptoms return, Further diagnostic work-up, Recheck today's complaints, Continuance of care, Re-evaluation by your physician Discharge Instructions: - Discharge Summary Sheet kdr - Schizophrenia kdr - Attention Deficit Hyperactivity Disorder, Pediatric kdr - Supporting Someone With Schizophrenia kdr - Managing Schizophrenia kdr - Living With Attention Deficit Hyperactivity Disorder kdr - Attention Deficit Hyperactivity Disorder, Adult kdr - Supporting Someone With Attention Deficit Hyperactivity Disorder kdr Forms: - Medication Reconciliation Form kdr - Thank You Letter kdr - [email or web address] kdr Signatures: Dispatcher [employer] EDMS Kenneth Hall MD MD kdr Sofie Coughlin RN RN cm10 Corrections: (The following items were deleted from the chart) 22:59 22:44 DOPamine 0.5 mcg/kg/min IV at calculated rate continuous ordered. kdr cm10
--- NOTE | 2023-01-03 05:44 | ER ---
Nurse's Notes [facility] Name: Teetee Samuels Age: 32 yrs Sex: Male : 1990 Arrival Date: 01/02/2023 Time: 22:12 Bed 18 Private MD: Diagnosis: Bipolar disorder, current episode depressed, mild or moderate severity;Attention-deficit hyperactivity disorder, other type;Schizophrenia, unspecified;Other depressive episodes Presentation: 01/02 22:18 Chief complaint: Patient states: "I am trying to get to my doctors appointment for my cm10 mental health." Pt states that he has not slept in 3 days. When asked if he is suicidal or homicidal, pt states no. Pt A\\T\\Ox4, cooperative. When asked what kind of mental health problems he has pt unable to state. Pt also states that he is having A/V hallucinations. EMS states: That patient was found at a convenience store near [place]. Per report, pt was asking to go to a mental health hospital but when told they could only bring him to the ED pt stated that he wanted to come to the ED. Coronavirus screen: Vaccine status: Patient reports being unvaccinated. Ebola Screen: No symptoms or risks identified at this time. Initial Sepsis Screen: Does the patient meet any 2 criteria? No. Patient's initial sepsis screen is negative. Does the patient have a suspected source of infection? No. Patient's initial sepsis screen is negative. Risk Assessment: Do you want to hurt yourself or someone else? Patient reports no desire to harm self or others. Onset of symptoms was January 02, 2023. 22:18 Method Of Arrival: EMS: [facility] 10 22:18 Acuity: NAYLA 2 cm10 Triage Assessment: 22:22 General: Appears in no apparent distress. Behavior is cooperative, anxious, restless. cm10 Pain: Denies pain. Historical: - Allergies: 22:22 Aspirin; cm10 - PMHx: 22:22 ADD/ADHD; Bipolar disorder; Depression; Schizophrenia; cm10 - Immunization history:: Adult Immunizations unknown. - Social history:: Smoking status: unknown. Screenin:26 [facility] ED Fall Risk Assessment (Adult) History of falling in the last 3 months, cm10 including since admission No falls in past 3 months (0 pts) Confusion or Disorientation No (0 pts) Intoxicated or Sedated No (0 pts) Impaired Gait No (0 pts) Mobility Assist Device Used No (0 pt) Altered Elimination No (0 pt) Score/Fall Risk Level 0 - 2 = Low Risk Oriented to surroundings, Maintained a safe environment. Abuse screen: Denies threats or abuse. Denies injuries from another. Nutritional screening: No deficits noted. Tuberculosis screening: No symptoms or risk factors identified. Assessment: 22:56 Reassessment: PT REFUSING LABS AT THIS TIME. PROVIDER AWARE AND AT BEDSIDE. cm10 01/03 00:00 Reassessment: No changes from previously documented assessment. Patient and/or family vc1 updated on plan of care and expected duration. Pain level reassessed. Assumed care of pt from IFEOMA Carrizales. 00:00 Reassessment: Pt refusing to wear blood pressure cuff and pulse ox along with labs. Pt vc1 just wants to sleep and be left alone. Pt denies any suicidal or homicidal thoughts. 01:00 Reassessment: No changes from previously documented assessment. pt asleep at this time. vc1 02:00 Reassessment: No changes from previously documented assessment. Pt asleep at this time. vc1 03:00 Reassessment: No changes from previously documented assessment. Pt asleep at this time. vc1 03:55 Reassessment: Pt given sandwich, chips, and drink. vc1 04:00 Reassessment: Charge Nurse spoke with patients mom. Mom refusing to picking belt operator pt states vc1 he needs to go back to [facility] that she does not want him in her house because he is not acting normal. Mom wants pt to call her. Pt refuses to call mom and says he will go back to [facility] if we don't have to do any blood work on him. 05:38 Reassessment: Pt asked if he wants to call his mom, pt states "no quit asking me the vc1 same question over and over I don't want to be rushed. Just leave me alone". 05:55 Reassessment: PD called for assistance in discharging patient. Pt walked out with PD. vc1 Psych: 01/02 22:51 [place] Suicide Severity Screening: In the past month, have you wished you were cm10 or wished you could go to sleep and not wake up? Patient responds "No." "In the past month, have you actually had any thoughts of killing yourself?" Patient responds "no." "In your lifetime, have you ever done anything, started to do anything, or prepared to do anything to end your life?" Patient responds "no.". Subjective: Patient's mood is Delusions are denied, Hallucinations are auditory, visual, Having thoughts of homicide. Denies plan. Objective: Patient is cooperative, restless, Speech is soft, Affect is appropriate. Interventions:. Safety Checks: Personal items have been removed. Door is open. Vital Signs: 22:18 BP 129 / 91; Pulse 96; Resp 18; Temp 98.3; Pulse Ox 97% on R/A; cm10 ED Course: 22:14 Patient arrived in ED. cm10 22:15 Kenneth Hall MD is Attending Physician. kdr 22:22 Triage completed. cm10 22:23 Arm band placed on Patient placed in an exam room, on a stretcher. cm10 22:24 Patient has correct armband on for positive identification. cm10 07 00:06 Report given to IFEOMA Hogan. cm10 06:32 No provider procedures requiring assistance completed. Patient did not have IV access vc1 during this emergency room visit. Administered Medications: 07 22:59 CANCELLED (Inappropriate at this time): DOPamine 0.5 mcg/kg/min IV at calculated rate cm10 continuous 23:12 Drug: Geodon IM 20 mg Route: IM; Site: right deltoid; cm10 Medication: 01/03 06:32 VIS not applicable for this client. vc1 Outcome: 05:44 Discharge ordered by . kdr 06:32 Discharged to home ambulatory, escorted by PD vc1 06:32 Condition: stable 06:32 Discharge instructions given to patient, Instructed on discharge instructions, follow up and referral plans. 06:33 Patient left the ED. vc1 Signatures: Kenneth Hall MD MD [facility] Cici Bailey RN RN vc1 Sofie Coughlin RN RN cm10
[2023-01-03 06:41] VITALS: BP 129/91; TEMP 98.3; O2SAT 97
== END 2023-01-03 06:33 | disposition home or self-care (01) ==
LOC: ER 22:12
DX: F31.32 Bipolar disorder, current episode depressed, moderate (principal); F90.8 Attention-deficit hyperactivity disorder, other type; F20.9 Schizophrenia, unspecified
CPT/HCPCS: 96372; 99285; J3486